=== PATIENT | male | born 1955 | race Caucasian/White ===

== ENCOUNTER 2017-12-09 11:42 | Emergency (ER) | payer OTHER ==
[2017-12-09 12:04] VITALS: BP 157/77
[2017-12-09] MEDS ORDERED: Sodium Chloride 0.9% 10 ML Syringe FLUSH PRN (12:16)
[2017-12-09] MEDS ORDERED: Lactated Ringers 1,000 ML IV ONE (12:16)
--- NOTE | 2017-12-09 12:18 | EDM.PDOC ---
ED HPI GENERAL MEDICAL PROBLEM - General Chief Complaint: Genitourinary Problem Stated Complaint: URINATING BLOOD Time Seen by Provider: 12/09/17 12:10 Source of Information: Reports: Patient, RN Notes Reviewed History Limitations: Reports: No Limitations - History of Present Illness INITIAL COMMENTS - FREE TEXT/NARRATIVE: 62-year-old gentleman presents to the emergency department today complaint of bright red blood in his urine he has urinated 3 times over the last 2 hours however the bright red blood has decreased each time. Does have a known history of colon cancer as well as prostate cancer currently on treatment denies any other symptoms - Related Data Allergies Allergy/AdvReac Type Severity Reaction Status Date / Time Penicillins Allergy Shortness Verified 12/09/17 11:54 of Breath Home Meds: Home Meds Ferrous Sulfate [Iron] 325 mg PO DAILY 06/10/13 [History] Gemfibrozil 600 mg PO BID 06/10/13 [History] Omeprazole [Prilosec] 40 mg PO DAILY 06/10/13 [History] glyBURIDE [Glyburide] 10 mg PO BIDM 06/10/13 [History] metFORMIN [Glucophage XR] 750 mg PO TID 02/10/14 [History] Aspirin [Children's Aspirin] 81 mg PO DAILY 06/16/16 [History] Losartan [Cozaar] 50 mg PO DAILY 06/16/16 [History] Liraglutide [Victoza 3-Renzo] 1.2 mg SQ DAILY 11/21/17 [History] Past Medical History HEENT History: Reports: Impaired Vision, Otitis Media Cardiovascular History: Reports: High Cholesterol, Hypertension Musculoskeletal History: Reports: Arthritis, Fracture Other Musculoskeletal History: history of left middle finger fracture secondary to football year ago Endocrine/Metabolic History: Reports: Diabetes, Type II Hematologic History: Reports: Blood Transfusion(s) Oncologic (Cancer) History: Reports: Bone, Colon, Liver, Metastatic, Prostate - Infectious Disease History Infectious Disease History: Reports: Measles - Past Surgical History GI Surgical History: Reports: Appendectomy, Colon, Colonoscopy, EGD, Hernia, Abdominal, Other (See Below) Musculoskeletal Surgical History: Reports: Arthroscopic Knee, Hip Replacement, Knee Replacement Oncologic Surgical History: Reports: None Social & Family History - Family History Family Medical History: Noncontributory Oncologic: Reports: Prostate - Tobacco Use Smoking Status *Q: Never Smoker Second Hand Smoke Exposure: No - Caffeine Use Caffeine Use: Reports: Coffee - Alcohol Use Days Per Week of Alcohol Use: 1 Number of Drinks Per Day: 6 Total Drinks Per Week: 6 - Recreational Drug Use Recreational Drug Use: No ED ROS GENERAL - Review of Systems Review Of Systems: See Below Constitutional: Reports: No Symptoms Respiratory: Reports: No Symptoms Cardiovascular: Reports: No Symptoms GI/Abdominal: Reports: No Symptoms : Reports: Hematuria ED EXAM, RENAL/ - Physical Exam Exam: See Below Exam Limited By: No Limitations General Appearance: Alert, WD/WN, No Apparent Distress Respiratory/Chest: No Respiratory Distress, Lungs Clear, Normal Breath Sounds, No Accessory Muscle Use Cardiovascular: Regular Rate, Rhythm, No Murmur GI/Abdominal: Soft, Non-Tender Course - Vital Signs Last Recorded V/S: Last Vital Signs Temp 97.1 F 12/09/17 12:03 Pulse 81 12/09/17 12:03 Resp 18 12/09/17 12:03 BP 157/77 H 12/09/17 12:03 Pulse Ox 98 12/09/17 12:03 - Orders/Labs/Meds Orders: Active Orders 24 hr Category Date Time Status Peripheral IV Care [RC] . DIRECTED Care 12/09/17 12:16 Active Urogram [CT] Stat Exams 12/09/17 12:16 Taken Iopamidol [Isovue-300 (61%)] Med 12/09/17 12:45 Active 130 ml IV . DIRECTED PRN Sodium Chloride 0.9% [Normal Saline] 100 ml Med 12/09/17 12:45 Active IV ASDIRECTED Sodium Chloride 0.9% [Saline Flush] Med 12/09/17 12:16 Active 10 ml FLUSH ASDIRECTED PRN Peripheral IV Insertion Adult [OM.PC] Routine Oth 12/09/17 12:16 Ordered Medication Orders Sodium Chloride (Normal Saline) 100 mls @ 3 mls/sec IV ASDIRECTED [facility] Last Admin: 12/09/17 13:20 Dose: 3 mls/sec Iopamidol (Isovue-300 (61%)) 130 ml IV . DIRECTED PRN PRN Reason: RADIOLOGY EXAM Stop: 12/10/17 12:46 Last Admin: 12/09/17 13:20 Dose: 130 ml Sodium Chloride (Saline Flush) 10 ml FLUSH ASDIRECTED PRN PRN Reason: Keep Vein Open Labs: Laboratory Tests 12/09/17 12/09/17 12/09/17 Range/Units 11:55 12:16 12:16 WBC 7.2 (4.5-11.0) K/uL RBC 4.35 (4.30-5.90) M/uL Hgb 12.5 (12.0-15.0) g/dL Hct 37.3 L (40.0-54.0) % MCV 86 (80-98) fL MCH 29 (27-31) pg MCHC 34 (32-36) % Plt Count 341 (150-400) K/uL Sodium 140 (140-148) mmol/L Potassium 4.1 (3.6-5.2) mmol/L Chloride 105 (100-108) mmol/L Carbon Dioxide 25 (21-32) mmol/L Anion Gap 10.0 (5.0-14.0) mmol/L BUN 17 D (7-18) mg/dL Creatinine 0.8 (0.8-1.3) mg/dL Est Cr Clr Drug Dosing 91.44 mL/min Estimated GFR (MDRD) > 60 (>60) Glucose 337 H (74-106) mg/dL Calcium 8.7 (8.5-10.1) mg/dL Urine Color Yellow Urine Appearance Cloudy Urine pH 6.0 (4.5-8.0) Ur Specific [place] 1.010 (1.008-1.030) Urine Protein Negative (NEGATIVE) mg/dL Urine Glucose (UA) 1000 H (NEGATIVE) mg/dL Urine Ketones Negative (NEGATIVE) mg/dL Urine Occult Blood Large (NEGATIVE) Urine Nitrite Negative (NEGAITVE) Urine Bilirubin Negative (NEGATIVE) Urine Urobilinogen Normal (NORMAL) mg/dL Ur Leukocyte Esterase Negative (NEGATIVE) Urine RBC 75-100 H (0-5) Urine WBC Not seen (0-5) Ur Epithelial Cells Not seen Amorphous Sediment Not seen Urine Bacteria Rare Urine Mucus Not seen Meds: Medications Generic Name Dose Route Start Last Admin Trade Name Freq PRN Reason Stop Dose Admin Sodium Chloride 100 mls @ 3 mls/sec 12/09/17 12:45 12/09/17 13:20 Normal Saline IV 3 mls/sec ASDIRECTED MARLA Administration Iopamidol 130 ml 12/09/17 12:45 12/09/17 13:20 Isovue-300 (61%) IV 12/10/17 12:46 130 ml . DIRECTED PRN Administration RADIOLOGY EXAM Sodium Chloride 10 ml 12/09/17 12:16 Saline Flush FLUSH ASDIRECTED PRN Keep Vein Open Discontinued Medications Generic Name Dose Route Start Last Admin Trade Name Carolann PRN Reason Stop Dose Admin Lactated Ringer's 1,000 mls @ 999 mls/hr 12/09/17 12:16 12/09/17 13:15 Ringers, Lactated IV 12/09/17 13:16 999 mls/hr BOLUS ONE Administration Departure - Departure Time of Disposition: 14:20 Disposition: Home, Self-Care 01 Condition: Fair Clinical Impression: Bladder mass - Discharge Information Referrals: Rick Domínguez PA [Primary Care Provider] - Forms: ED Department Discharge Additional Instructions: Please contact your primary care tomorrow morning for consultation with urology , call or return to the emergency department worsening of symptoms - My Orders Last 24 Hours: My Active Orders 12/09/17 12:16 Peripheral IV Care [RC] . DIRECTED Urogram [CT] Stat Sodium Chloride 0.9% [Saline Flush] 10 ml FLUSH ASDIRECTED PRN Peripheral IV Insertion Adult [OM.PC] Routine 12/09/17 12:45 Iopamidol [Isovue-300 (61%)] 130 ml IV . DIRECTED PRN Sodium Chloride 0.9% [Normal Saline] 100 ml IV ASDIRECTED - Assessment/Plan Last 24 Hours: My Active Orders 12/09/17 12:16 Peripheral IV Care [RC] . DIRECTED Urogram [CT] Stat Sodium Chloride 0.9% [Saline Flush] 10 ml FLUSH ASDIRECTED PRN Peripheral IV Insertion Adult [OM.PC] Routine 12/09/17 12:45 Iopamidol [Isovue-300 (61%)] 130 ml IV . DIRECTED PRN Sodium Chloride 0.9% [Normal Saline] 100 ml IV ASDIRECTED Plan: Assessment Acuity = acute Site and laterality = bladder mass Etiology = suspicious for malignancy Manifestations = hematuria Location of injury = Home Lab values = CBC, BMP unremarkable urinalysis reveals 75 200 rbc's consists with hematuria and greater than thousand glucose consistent glucose urea CT scan : IMPRESSION: 1. Central bladder base 4.6 x 2.4 centimeter filling defect suspicious for malignancy. Urology consultation would be recommended. 2. Left renal cyst. Plan I did review lab work and CT scan results with him he is going to follow-up with his primary care tomorrow for referral to urology This note was dictated using [email or web address] voice recognition software please call with any questions on syntax or regine.
[2017-12-09] MEDS ORDERED: Iopamidol 612 MG/ML 150 ML Bottle IV PRN (12:45)
[2017-12-09] MEDS ORDERED: Sodium Chloride 0.9% 100 ML IV SCH (12:45)
== END 2017-12-09 14:37 | disposition home or self-care (01) ==
LOC: JP.ED 11:42
DX: N32.9 Bladder disorder, unspecified (principal); E78.00 Pure hypercholesterolemia, unspecified; I10 Essential (primary) hypertension; E11.9 Type 2 diabetes mellitus without complications; Z88.0 Allergy status to penicillin; Z79.899 Other long term (current) drug therapy; Z79.82 Long term (current) use of aspirin; Z79.84 Long term (current) use of oral hypoglycemic drugs; Z90.49 Acquired absence of other specified parts of digestive tract
CPT/HCPCS: 36415; 74178; 80048; 81001; 85027; 96360; 99284; J7030; J7120

== ENCOUNTER 2018-01-30 08:16 | Day surgery (SDC) | payer OTHER ==
[2018-01-30] MEDS: Lactated Ringers 1,000 ML IV SCH (08:43)
[2018-01-30] MEDS ORDERED: Propofol 200 MG/20 ML SDV ONE (09:06)
[2018-01-30] MEDS ORDERED: fentaNYL 100 MCG/2 ML SDV ONE (09:06)
[2018-01-30] MEDS ORDERED: Midazolam 1 MG/ML 2 ML SDV ONE (09:06)
[2018-01-30 11:41] VITALS: BP 139/79
--- NOTE | 2018-01-30 12:41 | OR ---
DATE OF PROCEDURE: 01/30/2018 PREOPERATIVE DIAGNOSIS: History of colon cancer. POSTOPERATIVE DIAGNOSES: 1. Diverticulosis. 2. History of colon cancer. PROCEDURE: Colonoscopy to the ileotransverse colon anastomosis. SURGEON: Anand Canseco MD. ANESTHESIA: IV anesthesia with monitored anesthesia care. INDICATION: This 62-year-old white male is referred for a colonoscopy because of a history of colon cancer. He says he underwent a right hemicolectomy in 2013. He has not had a colonoscopy since then. I counseled him for the procedure including the risks and alternatives, and he gave his informed consent to proceed. DESCRIPTION OF PROCEDURE: The patient was placed in the left lateral decubitus position. IV anesthesia was administered by the Anesthesia Service. Time-out was held. A rectal exam was performed, which showed a hard mass in the prostate gland. He does have known metastatic prostate cancer for which he is being treated. A flexible video Olympus colonoscope was then introduced through his anus, up his rectum, and out his colon, all the way to the ileotransverse colon anastomosis. En route, we saw very few scattered diverticula. There was no bleeding or inflammation associated with them. Once the cecum was reached, the scope was slowly withdrawn, examining the mucosa throughout. No additional mucosal abnormalities were noted. The scope was retroflexed in the rectum with the distal rectum appearing unremarkable. The scope was straightened and removed. He tolerated the procedure well. Anand Canseco MD /[id number]
== END 2018-01-30 11:35 | disposition home or self-care (01) ==
LOC: JP.SDS 08:16
PROVIDERS: ATTEND Surgery
DX: Z12.11 Encounter for screening for malignant neoplasm of colon (principal); K57.30 Diverticulosis of large intestine without perforation or abscess without bleeding; I10 Essential (primary) hypertension; E11.9 Type 2 diabetes mellitus without complications; E78.00 Pure hypercholesterolemia, unspecified; Z90.49 Acquired absence of other specified parts of digestive tract; Z85.038 Personal history of other malignant neoplasm of large intestine; Z88.0 Allergy status to penicillin
CPT/HCPCS: J2250; J2704; J3010; J7120

== ENCOUNTER 2018-09-25 09:49 | Inpatient (IN) | payer OTHER ==
[2018-09-25] MEDS ORDERED: Sodium Chloride 0.9% 1,000 ML IV ONE (09:52)
[2018-09-25] MEDS ORDERED: Insulin Regular, Human 100 Units/ML 3 ML Vial SUBCUT ONE ×2 (09:53→12:09)
--- NOTE | 2018-09-25 10:48 | EDM.PDOC ---
ED HPI GENERAL MEDICAL PROBLEM - General Chief Complaint: General Stated Complaint: POSSIBLE DEHYDRATION, SENT OVER FROM ONCOLOGY Time Seen by Provider: 09/25/18 10:30 Source of Information: Reports: Patient, Old Records, Provider, RN History Limitations: Reports: Other (incomplete records) - History of Present Illness INITIAL COMMENTS - FREE TEXT/NARRATIVE: 62 yo male with known stage IV prostate CA with mets to the bladder is just about to start radiation therapy in [place]. He had some recent labs there, but does not know the values. Today he was seen in oncology locally and they noted some very abnormal labs so referred him to the ER. He complains of SOB, increased thirst, frequent urination, and weakness. He has had a minimal dry cough. No dysuria. He has been out of his metformin for about 2 weeks due to a problem with getting a refill. No fever. Onset: Gradual Duration: Week(s):, Getting Worse Location: Reports: Generalized Quality: Reports: Other (no reported pain) Severity: Moderate Improves with: Reports: None Worsens with: Reports: Other (time) Context: Reports: Other (See HPI) Associated Symptoms: Reports: Cough (minimal, dry), Malaise, Shortness of Breath , Weakness. Denies: Chest Pain, Fever/Chills, Nausea/Vomiting Treatments VISION REHABILITATION THERAPIST: Reports: Other (see below) (none) Abdomen Pain Score (Numeric/FACES): 2 - Related Data Allergies Allergy/AdvReac Type Severity Reaction Status Date / Time Penicillins Allergy Shortness Verified 09/25/18 10:05 of Breath Home Meds: Home Meds Ferrous Sulfate [Iron] 325 mg PO DAILY 06/10/13 [History] Gemfibrozil 600 mg PO BID 06/10/13 [History] Omeprazole [Prilosec] 40 mg PO DAILY 06/10/13 [History] glyBURIDE [Glyburide] 10 mg PO BIDM 06/10/13 [History] metFORMIN [Glucophage XR] 750 mg PO TID 02/10/14 [History] Aspirin [Children's Aspirin] 81 mg PO DAILY 06/16/16 [History] Losartan [Cozaar] 50 mg PO DAILY 06/16/16 [History] Liraglutide [Victoza 3-Renzo] 1.2 mg SQ DAILY 11/21/17 [History] atorvaSTATin [Lipitor] 10 mg PO BEDTIME 01/30/18 [History] glipiZIDE [Glucotrol] 10 mg PO BID 01/30/18 [History] Past Medical History HEENT History: Reports: Hard of Hearing, Impaired Vision, Otitis Media Cardiovascular History: Reports: High Cholesterol, Hypertension Gastrointestinal History: Reports: Colon Polyp Genitourinary History: Reports: Other (See Below) Other Genitourinary History: cancer urethra, bladder, prostate metastasis Musculoskeletal History: Reports: Arthritis, Fracture Other Musculoskeletal History: history of left middle finger fracture secondary to football year ago Neurological History: Reports: None Endocrine/Metabolic History: Reports: Diabetes, Type II Hematologic History: Reports: Blood Transfusion(s) Oncologic (Cancer) History: Reports: Bone, Colon, Liver, Lymphoma, Metastatic, Prostate, Other (See Below) Other Oncologic History: Urethra - Infectious Disease History Infectious Disease History: Reports: Measles - Past Surgical History HEENT Surgical History: Reports: Other (See Below) Other HEENT Surgeries/Procedures: Cyst inner ear GI Surgical History: Reports: Appendectomy, Colon, Colonoscopy, EGD, Hernia, Abdominal Male Surgical History: Reports: Prostatectomy, Other (See Below) Other Male Surgeries/Procedures: Bladder tumor, urethra biopsies Neurological Surgical History: Reports: Vertebroplasty Musculoskeletal Surgical History: Reports: Arthroscopic Knee, Hip Replacement, Knee Replacement, Other (See Below) Other Musculoskeletal Surgeries/Procedures:: Hip revision, verteoplasty Oncologic Surgical History: Reports: None Social & Family History - Family History Family Medical History: Noncontributory Oncologic: Reports: Prostate - Tobacco Use Smoking Status *Q: Never Smoker - Caffeine Use Caffeine Use: Reports: None - Recreational Drug Use Recreational Drug Use: No ED ROS GENERAL - Review of Systems Review Of Systems: See Below Constitutional: Reports: Malaise, Weakness. Denies: Fever HEENT: Reports: No Symptoms Respiratory: Reports: Shortness of Breath, Cough (minimal, dry). Denies: Wheezing, Pleuritic Chest Pain, Sputum, Hemoptysis Cardiovascular: Reports: No Symptoms Endocrine: Reports: No Symptoms GI/Abdominal: Reports: No Symptoms : Reports: Frequency. Denies: Dysuria, Flank Pain, Hematuria Musculoskeletal: Reports: No Symptoms Skin: Reports: No Symptoms Neurological: Reports: No Symptoms ED EXAM, GENERAL - Physical Exam Exam: See Below Exam Limited By: No Limitations General Appearance: Alert, WD/WN, No Apparent Distress Eye Exam: Bilateral Eye: Normal Inspection Ears: Normal External Exam, Normal Canal, Hearing Grossly Normal Ear Exam: Bilateral Ear: Auricle Normal, Canal Normal Nose: Normal Inspection, Normal Mucosa, No Blood Throat/Mouth: Normal Inspection, Normal Lips, Normal Oropharynx, Normal Voice, No Airway Compromise Head: Atraumatic, Normocephalic Neck: Normal Inspection Respiratory/Chest: No Respiratory Distress, Lungs Clear, Normal Breath Sounds, No Accessory Muscle Use Cardiovascular: Regular Rate, Rhythm, No Edema, Tachycardia GI/Abdominal: Normal Bowel Sounds, Soft, Non-Tender, No Distention Back Exam: Normal Inspection. No: CVA Tenderness (R), CVA Tenderness (L) Extremities: Normal Inspection, Normal Range of Motion, Non-Tender, No Pedal Edema Neurological: Alert, Oriented, CN II-XII Intact, Normal Cognition, No Motor/ Sensory Deficits Psychiatric: Normal Affect, Normal Mood Skin Exam: Warm, Dry, Intact, Normal Color, No Rash Lymphatic: No Adenopathy Course - Vital Signs Last Recorded V/S: Last Vital Signs Temp 34.7 C L 09/25/18 10:08 Pulse 96 09/25/18 12:30 Resp 20 09/25/18 10:08 BP 130/84 09/25/18 12:30 Pulse Ox 99 09/25/18 12:30 - Orders/Labs/Meds Orders: Active Orders 24 hr Category Date Time Status CULTURE BLOOD [BC] Stat Lab 09/25/18 10:08 Received Labs: Laboratory Tests 09/25/18 09/25/18 09/25/18 Range/Units 09:51 10:08 11:35 Potassium 5.8 H (3.6-5.2) mmol/L Lactic Acid 2.9 H (0.4-2.0) mmol/L Troponin I (0.000-0.056) ng/mL Urine Color Yellow Urine Appearance Slightly cloudy Urine pH 5.0 (4.5-8.0) Ur Specific [place] 1.020 (1.008-1.030) Urine Protein Negative (NEGATIVE) mg/dL Urine Glucose (UA) >=1000 H (NEGATIVE) mg/dL Urine Ketones 150 H (NEGATIVE) mg/dL Urine Occult Blood Negative (NEGATIVE) Urine Nitrite Negative (NEGAITVE) Urine Bilirubin Negative (NEGATIVE) Urine Urobilinogen Normal (NORMAL) mg/dL Ur Leukocyte Esterase Negative (NEGATIVE) Urine RBC 5-10 H (0-5) Urine WBC 0-5 (0-5) Ur Epithelial Cells Not seen Amorphous Sediment Few Urine Bacteria Few Urine Mucus Rare Urine Other See note 09/25/18 Range/Units 12:29 Potassium (3.6-5.2) mmol/L Lactic Acid (0.4-2.0) mmol/L Troponin I < 0.017 (0.000-0.056) ng/mL Urine Color Urine Appearance Urine pH (4.5-8.0) Ur Specific [place] (1.008-1.030) Urine Protein (NEGATIVE) mg/dL Urine Glucose (UA) (NEGATIVE) mg/dL Urine Ketones (NEGATIVE) mg/dL Urine Occult Blood (NEGATIVE) Urine Nitrite (NEGAITVE) Urine Bilirubin (NEGATIVE) Urine Urobilinogen (NORMAL) mg/dL Ur Leukocyte Esterase (NEGATIVE) Urine RBC (0-5) Urine WBC (0-5) Ur Epithelial Cells Amorphous Sediment Urine Bacteria Urine Mucus Urine Other Meds: Medications Discontinued Medications Generic Name Dose Route Start Last Admin Trade Name Freq PRN Reason Stop Dose Admin Sodium Chloride 1,000 mls @ 1,000 mls/hr 09/25/18 09:52 09/25/18 10:30 Normal Saline IV 09/25/18 10:51 1,000 mls/hr .BOLUS ONE Administration Insulin Human Regular 12 unit 09/25/18 09:53 09/25/18 10:37 Humulin R SUBCUT 09/25/18 09:54 12 units ONETIME ONE Administration Insulin Human Regular 15 unit 09/25/18 12:09 09/25/18 12:29 Humulin R SUBCUT 09/25/18 12:10 15 units ONETIME ONE Administration Departure - Departure Time of Disposition: 13:30 Disposition: Refer to Observation Condition: Fair Clinical Impression: Hyperkalemia, Prostate cancer metastatic to pelvis, Weakness Hyperglycemia due to type 2 diabetes mellitus Qualifiers: Diabetes mellitus longterm insulin use: without longterm use Qualified Code(s ): E11.65 - Type 2 diabetes mellitus with hyperglycemia - Discharge Information *PRESCRIPTION DRUG MONITORING PROGRAM REVIEWED*: No *COPY OF PRESCRIPTION DRUG MONITORING REPORT IN PATIENT SG: No Referrals: Rick Domínguez PA [Primary Care Provider] - Forms: ED Department Discharge - My Orders Last 24 Hours: My Active Orders 09/25/18 10:08 CULTURE BLOOD [BC] Stat - Assessment/Plan Last 24 Hours: My Active Orders 09/25/18 10:08 CULTURE BLOOD [BC] Stat
--- NOTE | 2018-09-25 15:29 | PCM.HP ---
H&P History of Present Illness - General Date of Service: 09/25/18 Admit Problem/Dx: Admission Diagnosis/Problem Admission Diagnosis/Problem Hyperglycemia Source of Information: Patient, Family, Provider, RN Notes Reviewed History Limitations: Reports: No Limitations - History of Present Illness Initial Comments - Free Text/Narative: Mr. Schulz is a 62-year-old gentleman who is admitted through the emergency department with history of progressive weakness, fatigue, nausea, and shortness of breath. He was recently diagnosed with metastatic prostate cancer and is close to beginning radiation therapy as well as chemotherapy. He has a known history of type 2 diabetes mellitus and ran out of his metformin approximately 9 days ago. Since then he has noted polydipsia as well as polyuria with progressive weakness and fatigue. He was into the oncology clinic today, labs were obtained showing evidence of acute on chronic renal insufficiency, hyperglycemia with a glucose of 600, and metabolic acidosis with elevation in anion gap and a decrease in carbon dioxide level to 11. He has received IV insulins as well as IV fluids in the emergency department and has felt somewhat improved. White blood cell count in the clinic was found to be elevated, he has no specific symptoms of localized infection and denies recent fever or chills. Follow-up labs obtained prior to admission show persistent but improving metabolic acidosis, elevation in serum ketones as well as lactic acid level. Abdomen Pain Score (Numeric/FACES): 2 - Related Data Allergies/Adverse Reactions: Allergies Allergy/AdvReac Type Severity Reaction Status Date / Time Penicillins Allergy Shortness Verified 09/25/18 10:05 of Breath Home Medications: Home Meds Ferrous Sulfate [Iron] 325 mg PO DAILY 06/10/13 [History] Gemfibrozil 600 mg PO BID 06/10/13 [History] Omeprazole [Prilosec] 40 mg PO DAILY 06/10/13 [History] glyBURIDE [Glyburide] 10 mg PO BIDM 06/10/13 [History] metFORMIN [Glucophage XR] 750 mg PO TID 02/10/14 [History] Aspirin [Children's Aspirin] 81 mg PO DAILY 06/16/16 [History] Losartan [Cozaar] 50 mg PO DAILY 06/16/16 [History] Liraglutide [Victoza 3-Renzo] 1.2 mg SQ DAILY 11/21/17 [History] atorvaSTATin [Lipitor] 10 mg PO BEDTIME 01/30/18 [History] glipiZIDE [Glucotrol] 10 mg PO BID 01/30/18 [History] Past Medical History HEENT History: Reports: Hard of Hearing, Impaired Vision, Otitis Media Cardiovascular History: Reports: High Cholesterol, Hypertension Gastrointestinal History: Reports: Colon Polyp Genitourinary History: Reports: Other (See Below) Other Genitourinary History: cancer urethra, bladder, prostate metastasis Musculoskeletal History: Reports: Arthritis, Fracture Other Musculoskeletal History: history of left middle finger fracture secondary to football year ago Neurological History: Reports: None Endocrine/Metabolic History: Reports: Diabetes, Type II Hematologic History: Reports: Blood Transfusion(s) Oncologic (Cancer) History: Reports: Bone, Colon, Liver, Lymphoma, Metastatic, Prostate, Other (See Below) Other Oncologic History: Urethra - Infectious Disease History Infectious Disease History: Reports: Measles - Past Surgical History HEENT Surgical History: Reports: Other (See Below) Other HEENT Surgeries/Procedures: Cyst inner ear GI Surgical History: Reports: Appendectomy, Colon, Colonoscopy, EGD, Hernia, Abdominal Male Surgical History: Reports: Prostatectomy, Other (See Below) Other Male Surgeries/Procedures: Bladder tumor, urethra biopsies Neurological Surgical History: Reports: Vertebroplasty Musculoskeletal Surgical History: Reports: Arthroscopic Knee, Hip Replacement, Knee Replacement, Other (See Below) Other Musculoskeletal Surgeries/Procedures:: Hip revision, verteoplasty Oncologic Surgical History: Reports: None Social & Family History - Family History Family Medical History: Noncontributory Oncologic: Reports: Prostate - Tobacco Use Smoking Status *Q: Never Smoker - Caffeine Use Caffeine Use: Reports: None - Recreational Drug Use Recreational Drug Use: No H&P Review of Systems - Review of Systems: Review Of Systems: See Below General: Reports: Weakness, Decreased Appetite. Denies: Fever, Chills HEENT: Reports: No Symptoms Pulmonary: Reports: Shortness of Breath. Denies: Wheezing, Pleuritic Chest Pain , Cough, Sputum, Hemoptysis Cardiovascular: Reports: Dyspnea on Exertion, Lightheadedness. Denies: Chest Pain, Palpitations, Orthopnea, PND, Edema Gastrointestinal: Reports: Decreased Appetite, Nausea. Denies: Abdominal Pain, Constipation, Diarrhea, Distension, Vomiting Genitourinary: Reports: No Symptoms Musculoskeletal: Reports: No Symptoms Skin: Reports: No Symptoms Psychiatric: Reports: No Symptoms Neurological: Reports: No Symptoms Hematologic/Lymphatic: Reports: No Symptoms Immunologic: Reports: No Symptoms Exam - Exam Exam: See Below - Vital Signs Vital Signs: Last Vital Signs Temp 95.8 F 09/25/18 13:36 Pulse 92 09/25/18 13:36 Resp 18 09/25/18 13:36 BP 140/77 09/25/18 13:36 Pulse Ox 99 09/25/18 13:36 Weight: 166 lb - Exam Quality Assessment: DVT Prophylaxis General: Alert, Oriented, Cooperative, Mild Distress HEENT: Conjunctiva Clear, Hearing Intact, Normal Nasal Septum, Posterior Pharynx Clear, Pupils Equal. No: Mucosa Moist & [place] Neck: Supple, Trachea Midline, +2 Carotid Pulse wo Bruit Lungs: Clear to Auscultation, Normal Respiratory Effort Cardiovascular: Regular Rate, Regular Rhythm, Normal S1, Normal S2. No: Systolic Murmur, Diastolic Murmur GI/Abdominal Exam: Soft, Non-Tender, No Organomegaly, No Distention Back Exam: Normal Inspection, Full Range of Motion Extremities: Non-Tender, No Pedal Edema Skin: Warm, Dry, Intact Neurological: Cranial Nerves Intact, Strength Equal Bilateral, Normal Speech, Normal Tone, Sensation Intact. No: Focal Deficit Neuro Extensive - Mental Status: Alert, Oriented x3, Normal Mood/Affect, Normal Cognition, Memory Intact - Patient Data Lab Results Last 24 hrs: Laboratory Results - last 24 hr 09/25/18 09/25/18 09/25/18 Range/Units 09:51 10:08 11:35 Potassium 5.8 H (3.6-5.2) mmol/L Lactic Acid 2.9 H (0.4-2.0) mmol/L Troponin I (0.000-0.056) ng/mL Urine Color Yellow Urine Appearance Slightly cloudy Urine pH 5.0 (4.5-8.0) Ur Specific [place] 1.020 (1.008-1.030) Urine Protein Negative (NEGATIVE) mg/dL Urine Glucose (UA) >=1000 H (NEGATIVE) mg/dL Urine Ketones 150 H (NEGATIVE) mg/dL Urine Occult Blood Negative (NEGATIVE) Urine Nitrite Negative (NEGAITVE) Urine Bilirubin Negative (NEGATIVE) Urine Urobilinogen Normal (NORMAL) mg/dL Ur Leukocyte Esterase Negative (NEGATIVE) Urine RBC 5-10 H (0-5) Urine WBC 0-5 (0-5) Ur Epithelial Cells Not seen Amorphous Sediment Few Urine Bacteria Few Urine Mucus Rare Urine Other See note 09/25/18 Range/Units 12:29 Potassium (3.6-5.2) mmol/L Lactic Acid (0.4-2.0) mmol/L Troponin I < 0.017 (0.000-0.056) ng/mL Urine Color Urine Appearance Urine pH (4.5-8.0) Ur Specific [place] (1.008-1.030) Urine Protein (NEGATIVE) mg/dL Urine Glucose (UA) (NEGATIVE) mg/dL Urine Ketones (NEGATIVE) mg/dL Urine Occult Blood (NEGATIVE) Urine Nitrite (NEGAITVE) Urine Bilirubin (NEGATIVE) Urine Urobilinogen (NORMAL) mg/dL Ur Leukocyte Esterase (NEGATIVE) Urine RBC (0-5) Urine WBC (0-5) Ur Epithelial Cells Amorphous Sediment Urine Bacteria Urine Mucus Urine Other Result Diagrams: 09/25/18 16:05 *Q Meaningful Use (ADM) - VTE Risk Assess *Q Each Risk Factor Represents 1 Point: None Total Score 1 Point Risk Factors: 0 Each Risk Factor Represents 2 Points: Age 60 - 74 Years, Malignancy (present or previous) Total Score 2 Point Risk Factors: 4 Each Risk Factor Represents 3 Points: None Total Score 3 Point Risk Factors: 0 Each Risk Factor Represents 5 Points: None Total Score 5 Point Risk Factors: 0 Venous Thromboembolism Risk Factor Score *Q: 4 Problem List Initiated/Reviewed/Updated: Yes Orders Last 24hrs: Active Orders 24 hr Category Date Time Status Patient Status Manage Transfer [TRANSFER] Routine ADT 09/25/18 15:06 Ordered CULTURE BLOOD [BC] Stat Lab 09/25/18 10:08 Received Resuscitation Status Routine Resus Stat 09/25/18 15:09 Ordered Assessment/Plan Comment:: ASSESSMENT AND PLAN METABOLIC ACIDOSIS-with moderate elevation in serum ketones and mild elevation in lactic acid level. Likely multifactorial with ketoacidosis secondary to uncontrolled diabetes2, dehydration, and decrease in oral intake. Elevation in lactic acid level likely secondary to dehydration. He has improved with doses of insulin and in the emergency department as well as IV fluids. -Moderate dose subcutaneous insulins -Resume therapy with metformin -Vigorous IV fluid replacement -Closely monitor electrolytes HYPERKALEMIA-secondary to acidosis, potassium level improved following hydration , will need to monitor closely for decrease in potassium level -Serial potassium levels -KCl 40 mEq by mouth now TYPE 2 DIABETES MELLITUS WITH HYPERGLYCEMIA-history of having stopped metformin approximately 9 days ago -4 times a day glucometers -Moderate dose sliding scale Humalog -Resume therapy with metformin -Continue other outpatient medications ACUTE ON CHRONIC RENAL INSUFFICIENCY-at baseline has chronic kidney disease stage III, exacerbation likely secondary to dehydration -Closely monitor renal function and urine output METASTATIC PROSTATE CARCINOMA MAINTENANCE ISSUES -DVT prophylaxis; Lovenox 40 mg subcutaneous daily -GI prophylaxis; not indicated -Barros catheter; not indicated -Nutrition; consistent carb diet -Nicotine dependence; not required CODE STATUS-FULL CODE ADMISSION STATUS-this patient will be admitted to observation status, expect no more than a one night hospital stay for evaluation and management of problems as outlined above. DISPOSITION-anticipate discharge to home after the hospital stay. PRIMARY CARE PROVIDER-Rick Domínguez
[2018-09-25] MEDS ORDERED: Sodium Chloride 0.9% 10 ML Syringe FLUSH PRN (16:00)
[2018-09-25] MEDS ORDERED: Ondansetron 4 MG/2 ML SDV IV PRN (16:00)
[2018-09-25] MEDS ORDERED: 50% Dextrose in Water 50 ML Syringe IV PRN (16:00)
[2018-09-25] MEDS ORDERED: Acetaminophen 325 MG Tab PO PRN (16:00)
[2018-09-25] MEDS ORDERED: Glucose Gel 15 GM in 37.5 GM Tube PO PRN (16:00)
[2018-09-25] MEDS ORDERED: Polyethylene Glycol 3350 Powder 17 GM Packet PO PRN (16:00)
[2018-09-25] MEDS ORDERED: Sodium Chloride 0.9% 500 ML IV SCH (16:00)
[2018-09-25] MEDS ORDERED: Sodium Polystyrene Sulfonate 15 GM/60 ML Susp 60 ML Bot PO ONE (16:00)
[2018-09-25] MEDS ORDERED: Insulin Lispro 100 Unit/ML 3 ML KwikPen SUBCUT SCH (17:00)
[2018-09-25] MEDS ORDERED: Sodium Chloride 0.9% 1,000 ML IV SCH ×2 (17:00→21:15)
[2018-09-25] MEDS: metFORMIN 500 MG Tab.ER PO SCH (17:33)
[2018-09-25] MEDS: glipiZIDE 5 MG Tab PO SCH (17:34)
[2018-09-25] MEDS: Insulin Lispro 100 Unit/ML 3 ML KwikPen SUBCUT SCH ×2 (17:39→21:36)
[2018-09-25] MEDS ORDERED: Potassium Chloride 20 MEQ Tab.ER PO ONE (19:04)
[2018-09-25] MEDS: Sodium Chloride 0.9% 1,000 ML IV SCH (21:15)
[2018-09-25] MEDS: atorvaSTATin 10 MG Tab PO SCH (21:17)
[2018-09-25] MEDS: Gemfibrozil 600 MG Tab PO SCH (21:18)
[2018-09-26] MEDS: Sodium Chloride 0.9% 1,000 ML IV SCH ×3 (04:25→23:54)
[2018-09-26] MEDS: Enoxaparin 40 MG/0.4 ML Syringe SUBCUT SCH (08:31)
[2018-09-26] MEDS: Losartan 50 MG Tab PO SCH (08:32)
[2018-09-26] MEDS: metFORMIN 500 MG Tab.ER PO SCH ×3 (08:32→17:49)
[2018-09-26] MEDS: Gemfibrozil 600 MG Tab PO SCH ×2 (08:32→21:27)
[2018-09-26] MEDS: glipiZIDE 5 MG Tab PO SCH ×2 (08:32→17:49)
[2018-09-26] MEDS: Aspirin 81 MG Tab.Chew PO SCH (08:32)
[2018-09-26] MEDS: Insulin Lispro 100 Unit/ML 3 ML KwikPen SUBCUT SCH ×4 (08:33→21:28)
[2018-09-26] MEDS: Liraglutide (rDNA Origin) 0.6 MG/0.1 ML 3 ML Pen SUBCUT SCH (08:34)
[2018-09-26] MEDS: Pantoprazole 40 MG Tab.CR PO SCH (08:35)
[2018-09-26] MEDS: Magnesium Sulfate/Water 2 GM in Premix Bag 1 BAG IV SCH ×2 (10:12→15:35)
[2018-09-26] MEDS ORDERED: Sodium Chloride 0.9% 10 ML Syringe FLUSH ONE (10:25)
[2018-09-26] MEDS ORDERED: Iopamidol 755 Mg/ML 100 ML Bottle IV SCH (10:30)
--- NOTE | 2018-09-26 11:17 | CT ---
CTA chest. Technique: Autodosage and iterative techniques employed. Findings: No PE. No enlarged mediastinal or hilar adenopathy. No dissection. No pericardial effusion. No airspace disease. Sclerotic lesions within the upper thoracic spine indicate metastatic disease. Linear, nodular density is stable left lung base #98. Impression: 1. No PE. 2. Evidence for metastatic disease as above. 3. Stable linear, nodular density left lung base. This may indicate a venous structure such as a AVM or potentially pulmonary nodule.
[2018-09-26] MEDS ORDERED: Sodium Chloride 0.9% 1,000 ML IV SCH (12:00)
[2018-09-26] MEDS: Insulin Glargine,Human Rec. Analog 100 Units/ML 3 ML Pen SUBCUT SCH ×2 (13:38→21:29)
--- NOTE | 2018-09-26 14:18 | PCM.PN ---
- General Info Date of Service: 09/26/18 Subjective Update: Mr. Schulz has had improvement in his glucose levels as well as metabolic acidosis since admission. He received large volume of fluid initially and labs looked fairly good last evening, with decreased fluid rate since then he has had some recurrence of his elevated iron gap metabolic acidosis. Glucose levels not as well controlled and that is the had been previously. He reports ongoing symptoms of shortness of breath with fairly minimal exertion. Functional Status: Reports: Pain Controlled, Urinating. Denies: Tolerating Diet - Review of Systems General: Reports: Weakness. Denies: Fever, Chills Pulmonary: Reports: Shortness of Breath. Denies: Pleuritic Chest Pain, Cough, Sputum, Hemoptysis, Wheezing Cardiovascular: Reports: Dyspnea on Exertion. Denies: Chest Pain, Palpitations , Orthopnea, PND, Edema, Lightheadedness Gastrointestinal: Reports: Nausea, Vomiting. Denies: Abdominal Pain, Constipation, Diarrhea, Difficulty Swallowing Genitourinary: Reports: No Symptoms - Patient Data Vitals - Most Recent: Last Vital Signs Temp 97.0 F 09/26/18 11:04 Pulse 102 H 09/26/18 11:04 Resp 18 09/26/18 11:04 BP 136/71 09/26/18 11:04 Pulse Ox 99 09/26/18 11:04 Weight - Most Recent: 170 lb I&O - Last 24 Hours: Intake & Output 09/25/18 09/26/18 09/26/18 22:59 06:59 14:59 Intake Total 1480 2534 2531 Output Total 200 775 600 Balance 1280 1759 1931 Lab Results Last 24 Hours: Laboratory Results - last 24 hr 09/25/18 09/25/18 09/25/18 Range/Units 16:05 16:05 16:05 WBC (4.5-11.0) K/uL RBC (4.30-5.90) M/uL Hgb (12.0-15.0) g/dL Hct (40.0-54.0) % MCV (80-98) fL MCH (27-31) pg MCHC (32-36) % Plt Count (150-400) K/uL Neut % (Auto) (36-66) % Lymph % (Auto) (24-44) % Pine % (Auto) (2-6) % Eos % (Auto) (2-4) % Baso % (Auto) (0-1) % Puncture Site Rt.radial ABG pH 7.412 (7.350-7.450) ABG pCO2 23.9 L (35.0-42.0) mmHg ABG pO2 91.9 (75.0-100.0) mmHg ABG HCO3 15.0 L (22.0-26.0) mmol/L ABG Total CO2 13.6 L (23.0-27.0) mmol/L ABG O2 Saturation 96.5 (95.0-98.0) % ABG O2 Content 15.5 (15.0-23.0) %vol ABG Base Excess -7.9 mm/L ABG Hemoglobin 11.5 L (13.5-18.0) g/dL ABG Oxyhemoglobin 95.1 % ABG Carboxyhemoglobin 0.3 (0.0-1.6) % ABG Methemoglobin 1.1 % Primitivo Test Passed O2 Delivery Device Nasal cannula Sodium 123 L (140-148) mmol/L Potassium 4.2 (3.6-5.2) mmol/L Chloride 87 L (100-108) mmol/L Carbon Dioxide 15 L (21-32) mmol/L Anion Gap 25.2 H (5.0-14.0) mmol/L BUN 36 H D (7-18) mg/dL Creatinine 1.1 (0.8-1.3) mg/dL Est Cr Clr Drug Dosing 66.50 mL/min Estimated GFR (MDRD) > 60 (>60) Glucose 399 H (74-106) mg/dL Lactic Acid (0.4-2.0) mmol/L Calcium 9.4 (8.5-10.1) mg/dL Magnesium (1.8-2.4) mg/dL Ketones Moderate H (NEGATIVE) 09/25/18 09/25/18 09/25/18 Range/Units 19:00 21:00 21:00 WBC (4.5-11.0) K/uL RBC (4.30-5.90) M/uL Hgb (12.0-15.0) g/dL Hct (40.0-54.0) % MCV (80-98) fL MCH (27-31) pg MCHC (32-36) % Plt Count (150-400) K/uL Neut % (Auto) (36-66) % Lymph % (Auto) (24-44) % Pine % (Auto) (2-6) % Eos % (Auto) (2-4) % Baso % (Auto) (0-1) % Puncture Site ABG pH (7.350-7.450) ABG pCO2 (35.0-42.0) mmHg ABG pO2 (75.0-100.0) mmHg ABG HCO3 (22.0-26.0) mmol/L ABG Total CO2 (23.0-27.0) mmol/L ABG O2 Saturation (95.0-98.0) % ABG O2 Content (15.0-23.0) %vol ABG Base Excess mm/L ABG Hemoglobin (13.5-18.0) g/dL ABG Oxyhemoglobin % ABG Carboxyhemoglobin (0.0-1.6) % ABG Methemoglobin % Primitivo Test O2 Delivery Device Sodium 127 L (140-148) mmol/L Potassium 4.0 4.1 (3.6-5.2) mmol/L Chloride 93 L (100-108) mmol/L Carbon Dioxide 23 (21-32) mmol/L Anion Gap 15.1 H (5.0-14.0) mmol/L BUN 29 H (7-18) mg/dL Creatinine 1.0 (0.8-1.3) mg/dL Est Cr Clr Drug Dosing 73.15 mL/min Estimated GFR (MDRD) > 60 (>60) Glucose 284 H (74-106) mg/dL Lactic Acid 1.2 (0.4-2.0) mmol/L Calcium 8.1 L (8.5-10.1) mg/dL Magnesium (1.8-2.4) mg/dL Ketones (NEGATIVE) 09/26/18 09/26/18 09/26/18 Range/Units 05:11 05:11 11:10 WBC 13.0 H (4.5-11.0) K/uL RBC 3.70 L (4.30-5.90) M/uL Hgb 10.7 L (12.0-15.0) g/dL Hct 31.2 L (40.0-54.0) % MCV 84 (80-98) fL MCH 29 (27-31) pg MCHC 34 (32-36) % Plt Count 499 H (150-400) K/uL Neut % (Auto) 79 H (36-66) % Lymph % (Auto) 7 L (24-44) % Pine % (Auto) 13 H (2-6) % Eos % (Auto) 0 L (2-4) % Baso % (Auto) 0 (0-1) % Puncture Site ABG pH (7.350-7.450) ABG pCO2 (35.0-42.0) mmHg ABG pO2 (75.0-100.0) mmHg ABG HCO3 (22.0-26.0) mmol/L ABG Total CO2 (23.0-27.0) mmol/L ABG O2 Saturation (95.0-98.0) % ABG O2 Content (15.0-23.0) %vol ABG Base Excess mm/L ABG Hemoglobin (13.5-18.0) g/dL ABG Oxyhemoglobin % ABG Carboxyhemoglobin (0.0-1.6) % ABG Methemoglobin % Primitivo Test O2 Delivery Device Sodium 129 L 124 L (140-148) mmol/L Potassium 4.4 4.0 (3.6-5.2) mmol/L Chloride 95 L 92 L (100-108) mmol/L Carbon Dioxide 20 L 12 L (21-32) mmol/L Anion Gap 18.4 H 24.0 H (5.0-14.0) mmol/L BUN 22 H 21 H (7-18) mg/dL Creatinine 0.7 L 0.7 L (0.8-1.3) mg/dL Est Cr Clr Drug Dosing 104.50 104.89 mL/min Estimated GFR (MDRD) > 60 > 60 (>60) Glucose 222 H 290 H (74-106) mg/dL Lactic Acid (0.4-2.0) mmol/L Calcium 8.5 8.0 L (8.5-10.1) mg/dL Magnesium 1.6 L (1.8-2.4) mg/dL Ketones (NEGATIVE) Harjit Results Last 24 Hours: Microbiology 09/25/18 10:08 Aerobic Blood Culture - Preliminary Blood - Arm, Right NO GROWTH AFTER 1 DAY Anaerobic Blood Culture - Preliminary NO GROWTH AFTER 1 DAY Med Orders - Current: Current Medications Acetaminophen (Tylenol) 650 mg PO Q4H PRN PRN Reason: Pain (Mild 1-3)/fever Aspirin (Aspirin) 81 mg PO DAILY [facility] Last Admin: 09/26/18 08:32 Dose: 81 mg Atorvastatin Calcium (Lipitor) 10 mg PO BEDTIME [facility] Last Admin: 09/25/18 21:17 Dose: 10 mg Dextrose (Glutose 15) 15 gm PO ONETIME PRN PRN Reason: Hypoglycemia Dextrose/Water (Dextrose 50% In Water) 50 ml IV ONETIME PRN PRN Reason: Hypoglycemia Enoxaparin Sodium (Lovenox) 40 mg SUBCUT DAILY [facility] Last Admin: 09/26/18 08:31 Dose: 40 mg Gemfibrozil (Lopid) 600 mg PO BID [facility] Last Admin: 09/26/18 08:32 Dose: 600 mg Glipizide (Glucotrol) 10 mg PO BIDMEALS [facility] Last Admin: 09/26/18 08:32 Dose: 10 mg Sodium Chloride (Normal Saline) 1,000 mls @ 125 mls/hr IV ASDIRECTED [facility] Last Admin: 09/26/18 04:25 Dose: 125 mls/hr Magnesium Sulfate 2 gm/ Premix 50 mls @ 25 mls/hr IV Q6H [facility] Stop: 09/26/18 17:59 Last Admin: 09/26/18 10:12 Dose: 25 mls/hr Sodium Chloride (Normal Saline) 1,000 mls @ 500 mls/hr IV ASDIRECTED [facility] Stop: 09/26/18 16:01 Last Admin: 09/26/18 13:21 Dose: 500 mls/hr Insulin Glargine (Lantus Solostar) 20 units SUBCUT BID [facility] Last Admin: 09/26/18 13:38 Dose: 20 units Insulin Human Lispro (Humalog) 0 unit SUBCUT QIDACANDBED [facility]; Protocol Liraglutide (Victoza) 1.2 mg SUBCUT DAILY [facility] Last Admin: 09/26/18 08:34 Dose: 1.2 mg Losartan Potassium (Cozaar) 50 mg PO DAILY [facility] Last Admin: 09/26/18 08:32 Dose: 50 mg Metformin HCl (Glucophage Xr) 750 mg PO TIDMEALS [facility] Last Admin: 09/26/18 14:06 Dose: 750 mg Ondansetron HCl (Zofran) 4 mg IV Q4H PRN PRN Reason: Nausea/Vomiting Pantoprazole Sodium (Protonix) 40 mg PO ACBREAKFAST [facility] Last Admin: 09/26/18 08:35 Dose: 40 mg Polyethylene Glycol (Miralax) 17 gm PO DAILY PRN PRN Reason: Constipation Sodium Chloride (Saline Flush) 10 ml FLUSH ASDIRECTED PRN PRN Reason: Keep Vein Open Discontinued Medications Sodium Chloride (Normal Saline) 1,000 mls @ 1,000 mls/hr IV .BOLUS ONE Stop: 09/25/18 10:51 Last Admin: 09/25/18 10:30 Dose: 1,000 mls/hr Sodium Chloride (Normal Saline) 500 mls @ 250 mls/hr IV .BOLUS [facility] Stop: 09/25/18 22:01 Sodium Chloride (Normal Saline) 1,000 mls @ 125 mls/hr IV ASDIRECTED [facility] Sodium Chloride (Normal Saline) 1,000 mls @ 500 mls/hr IV ASDIRECTED [facility] Stop: 09/25/18 21:01 Last Infusion: 09/25/18 18:59 Dose: Infused Sodium Chloride (Normal Saline) 89 mls @ 4 mls/sec IV ASDIRECTED [facility] Stop: 09/26/18 11:30 Last Admin: 09/26/18 10:49 Dose: 4 mls/sec Insulin Human Lispro (Humalog) 0 unit SUBCUT QIDACANDBED [facility]; Protocol Insulin Human Lispro (Humalog) 0 unit SUBCUT QIDACANDBED [facility]; Protocol Last Admin: 09/26/18 12:28 Dose: Not Given Insulin Human Regular (Humulin R) 12 unit SUBCUT ONETIME ONE Stop: 09/25/18 09:54 Last Admin: 09/25/18 10:37 Dose: 12 units Insulin Human Regular (Humulin R) 15 unit SUBCUT ONETIME ONE Stop: 09/25/18 12:10 Last Admin: 09/25/18 12:29 Dose: 15 units Iopamidol (Isovue-370 (76%)) 100 ml IV . DIRECTED [facility] Stop: 09/26/18 11:30 Last Admin: 09/26/18 10:48 Dose: 100 ml Potassium Chloride (Klor-Con M20) 40 meq PO ONETIME ONE Stop: 09/25/18 19:05 Last Admin: 09/25/18 19:57 Dose: 40 meq Sodium Chloride (Saline Flush) 10 ml FLUSH ONETIME ONE Stop: 09/26/18 10:26 Last Admin: 09/26/18 10:49 Dose: 10 ml Sodium Polystyrene Sulfonate (Kayexalate) 15 gm PO ONETIME ONE Stop: 09/25/18 16:01 Last Admin: 09/25/18 22:28 Dose: Not Given - Exam Quality Assessment: DVT Prophylaxis General: Alert, Oriented, Cooperative, Mild Distress Lungs: Clear to Auscultation, Normal Respiratory Effort Cardiovascular: Regular Rate, Regular Rhythm, No Murmurs GI/Abdominal Exam: Soft, Non-Tender, No Organomegaly, No Distention Extremities: Non-Tender, No Pedal Edema Skin: Warm, Dry, Intact - Problem List Review Problem List Initiated/Reviewed/Updated: Yes - My Orders Last 24 Hours: My Active Orders 09/25/18 15:09 Resuscitation Status Routine 09/25/18 16:00 Ambulate [RC] QID Blood Glucose Check, Bedside [RC] QIDACANDBED Communication Order [RC] STAT Diabetes Education [RC] Click to Edit Height and Weight [RC] DAILY Intake and Output [RC] .PRN Notify Provider Vital Signs [RC] ASDIRECTED Notify Provider [RC] .PRN Oxygen Therapy [RC] .PRN Peripheral IV Care [RC] . DIRECTED Up With Assistance [RC] ASDIRECTED Up to Chair [RC] QID VTE/DVT Education [RC] Per Unit Routine Vital Signs [RC] Q4H Acetaminophen [Tylenol] 650 mg PO Q4H PRN Dextrose 50% in Water 50 ml IV ONETIME PRN Dextrose [Glutose 15] 15 gm PO ONETIME PRN Ondansetron [Zofran] 4 mg IV Q4H PRN Polyethylene Glycol 3350 [MiraLAX] 17 gm PO DAILY PRN Sodium Chloride 0.9% [Saline Flush] 10 ml FLUSH ASDIRECTED PRN Peripheral IV Insertion Adult [OM.PC] Routine 09/25/18 17:00 glipiZIDE [Glucotrol] 10 mg PO BIDMEALS metFORMIN [Glucophage XR] 750 mg PO TIDMEALS 09/25/18 21:00 Gemfibrozil [Lopid] 600 mg PO BID Sodium Chloride 0.9% [Normal Saline] 1,000 ml IV ASDIRECTED atorvaSTATin [Lipitor] 10 mg PO BEDTIME 09/26/18 07:30 Pantoprazole [ProTONIX] 40 mg PO ACBREAKFAST 09/26/18 09:00 Aspirin 81 mg PO DAILY Enoxaparin [Lovenox] 40 mg SUBCUT DAILY Liraglutide [Victoza] 1.2 mg SUBCUT DAILY Losartan [Cozaar] 50 mg PO DAILY 09/26/18 10:00 Magnesium Sulfate/Water [Magnesium Sulfate 2 GM in Water 50 ML] 2 gm Premix Bag 1 bag IV Q6H 09/26/18 10:19 Echo Comp wo Cont [US] Stat 09/26/18 12:00 Insulin Glarg,Human.Rec.Analog [LantUS Solostar] 20 units SUBCUT BID Sodium Chloride 0.9% [Normal Saline] 1,000 ml IV ASDIRECTED 09/26/18 14:09 Patient Status [ADT] Routine 09/26/18 16:30 GLUCOSE POC LAB TO COLLECT [POC] QIDACANDBED 09/26/18 17:00 BASIC METABOLIC PANEL,BMP [CHEM] Stat Insulin Lispro [HumaLOG] See Protocol SUBCUT QIDACANDBED 09/26/18 21:00 GLUCOSE POC LAB TO COLLECT [POC] QIDACANDBED 09/26/18 23:00 BASIC METABOLIC PANEL,BMP [CHEM] Stat 09/27/18 05:00 BASIC METABOLIC PANEL,BMP [CHEM] Timed CBC WITH AUTO DIFF [HEME] Timed MAGNESIUM [CHEM] Timed 09/27/18 07:30 GLUCOSE POC LAB TO COLLECT [POC] QIDACANDBED 09/27/18 08:00 Myocardial Perf Spect Multi [NM] Routine 09/27/18 11:30 GLUCOSE POC LAB TO COLLECT [POC] QIDACANDBED 09/27/18 16:30 GLUCOSE POC LAB TO COLLECT [POC] QIDACANDBED 09/27/18 21:00 GLUCOSE POC LAB TO COLLECT [POC] QIDACANDBED 09/27/18 Breakfast NPO After Midnight [Nothing per Oral After Midnight Diet] [DIET] 09/28/18 07:30 GLUCOSE POC LAB TO COLLECT [POC] QIDACANDBED 09/28/18 11:30 GLUCOSE POC LAB TO COLLECT [POC] QIDACANDBED 09/28/18 16:30 GLUCOSE POC LAB TO COLLECT [POC] QIDACANDBED 09/28/18 21:00 GLUCOSE POC LAB TO COLLECT [POC] QIDACANDBED 09/29/18 07:30 GLUCOSE POC LAB TO COLLECT [POC] QIDACANDBED 09/29/18 11:30 GLUCOSE POC LAB TO COLLECT [POC] QIDACANDBED 09/29/18 16:30 GLUCOSE POC LAB TO COLLECT [POC] QIDACANDBED 09/29/18 21:00 GLUCOSE POC LAB TO COLLECT [POC] QIDACANDBED 09/30/18 07:30 GLUCOSE POC LAB TO COLLECT [POC] QIDACANDBED 09/30/18 11:30 GLUCOSE POC LAB TO COLLECT [POC] QIDACANDBED - Plan Plan:: ASSESSMENT AND PLAN METABOLIC ACIDOSIS-improved with hydration last night, for glasses bleed worse since then with lower rates of fluid infusion -Moderate dose subcutaneous insulin -Initiate long-acting insulin therapy with Lantus 20 units subcutaneous twice daily -Resume therapy with metformin -Vigorous IV fluid replacement -Closely monitor electrolytes HYPERKALEMIA-resolved, potassium stable since admission TYPE 2 DIABETES MELLITUS WITH HYPERGLYCEMIA-glucose levels remain high despite resumption of metformin -4 times a day glucometers -Moderate dose sliding scale Humalog -Add Lantus 20 units subcutaneous twice daily -Continue therapy with metformin -Continue other outpatient medications DYSPNEA ON EXERTION-symptoms have become progressively worse over the past few months and really have not improved with current management, will require further evaluation. CT scan of the chest with PE protocol is already been performed and showed no evidence of pulmonary emboli or significant pulmonary disease. -Echocardiogram -Aston scan Cardiolite study in a.m. ACUTE ON CHRONIC RENAL INSUFFICIENCY-renal function stable -Closely monitor renal function and urine output METASTATIC PROSTATE CARCINOMA MAINTENANCE ISSUES -DVT prophylaxis; Lovenox 40 mg subcutaneous daily -GI prophylaxis; not indicated -Barros catheter; not indicated -Nutrition; consistent carb diet -Nicotine dependence; not required CODE STATUS-FULL CODE ADMISSION STATUS-this patient will be admitted to observation status, expect no more than a one night hospital stay for evaluation and management of problems as outlined above. DISPOSITION-anticipate discharge to home after the hospital stay. PRIMARY CARE PROVIDER-Rick Domínguez
[2018-09-26] MEDS ORDERED: Melatonin 3 MG Tab PO SCH (21:00)
[2018-09-26] MEDS: atorvaSTATin 10 MG Tab PO SCH (21:27)
[2018-09-27] MEDS: Insulin Lispro 100 Unit/ML 3 ML KwikPen SUBCUT SCH ×2 (07:57→12:00)
[2018-09-27] MEDS ORDERED: Aminophylline 250 MG/10 ML SDV IVPUSH ONE (09:30)
[2018-09-27] MEDS: Pantoprazole 40 MG Tab.CR PO SCH (10:33)
[2018-09-27] MEDS: glipiZIDE 5 MG Tab PO SCH (10:33)
[2018-09-27] MEDS: metFORMIN 500 MG Tab.ER PO SCH ×2 (10:33→13:21)
[2018-09-27] MEDS: Aspirin 81 MG Tab.Chew PO SCH (10:34)
[2018-09-27] MEDS: Gemfibrozil 600 MG Tab PO SCH (10:34)
[2018-09-27] MEDS: Losartan 50 MG Tab PO SCH (10:34)
[2018-09-27] MEDS: Liraglutide (rDNA Origin) 0.6 MG/0.1 ML 3 ML Pen SUBCUT SCH (10:35)
[2018-09-27] MEDS: Enoxaparin 40 MG/0.4 ML Syringe SUBCUT SCH (10:35)
[2018-09-27] MEDS: Insulin Glargine,Human Rec. Analog 100 Units/ML 3 ML Pen SUBCUT SCH (10:36)
--- NOTE | 2018-09-27 11:32 | NM ---
Nuclear medicine cardiac Lexiscan stress test. History: Dyspnea on exertion. Technique: The patient was stressed pharmacologically with the administration of Lexiscan. The patient received intravenously 11.2 millicuries of technetium 99 Myoview followed by rest imaging and 31.8 millicuries followed by stress imaging. Findings: There is a uniform distribution of the radiopharmaceutical throughout the myocardium on both stress and rest imaging. There are no findings of acute or chronic ischemia. There is normal wall motion. The cardiac ejection fraction is within normal limits equal to 67%. Impression: 1. Negative exam.
[2018-09-27 14:47] VITALS: BP 105/59
--- NOTE | 2018-09-27 15:07 | PCM.DCSUM1 ---
Discharge Summary - Hospital Course Brief History: Mr. Schulz is a 62-year-old gentleman who was admitted through the emergency department with weakness and lethargy secondary to hyperglycemia with underlying uncontrolled type 2 diabetes mellitus and metabolic acidosis. - Discharge Data Discharge Date: 09/27/18 Discharge Disposition: Home, Self-Care 01 Condition: Fair - Discharge Diagnosis/Problem(s) (1) Dyspnea on exertion SNOMED Code(s): 22153224 ICD Code: R06.09 - OTHER FORMS OF DYSPNEA Status: Acute Current Visit: Yes (2) Hyperglycemia due to type 2 diabetes mellitus SNOMED Code(s): 645480949033597, 122581401321322 ICD Code: E11.65 - TYPE 2 DIABETES MELLITUS WITH HYPERGLYCEMIA Status: Acute Current Visit: Yes Qualifiers: Diabetes mellitus residential insulin use: without queen producer use Qualified Code(s): E11.65 - Type 2 diabetes mellitus with hyperglycemia (3) Hyperkalemia SNOMED Code(s): 22740773 ICD Code: E87.5 - HYPERKALEMIA Status: Acute Current Visit: Yes (4) Diabetes mellitus type 2 SNOMED Code(s): 89109842 ICD Code: E11.9 - TYPE 2 DIABETES MELLITUS WITHOUT COMPLICATIONS Status: Chronic Current Visit: No (5) Prostate cancer metastatic to pelvis SNOMED Code(s): 45541430 ICD Code: C61 - MALIGNANT NEOPLASM OF PROSTATE; C79.89 - SECONDARY MALIGNANT NEOPLASM OF OTHER SPECIFIED SITES Status: Chronic Current Visit: Yes (6) Metabolic acidosis SNOMED Code(s): 23932314 ICD Code: E87.2 - ACIDOSIS Status: Acute Current Visit: Yes - Patient Summary/Data Hospital Course: Mr. Schulz is a 62-year-old gentleman who was admitted through the emergency department with history of progressive weakness, fatigue, nausea, and shortness of breath. He was recently diagnosed with metastatic prostate cancer and is close to beginning radiation therapy as well as chemotherapy. He has a known history of type 2 diabetes mellitus and ran out of his metformin approximately 9 days ago. Since then he has noted polydipsia as well as polyuria with progressive weakness and fatigue. He was into the oncology clinic today, labs were obtained showing evidence of acute on chronic renal insufficiency, hyperglycemia with a glucose of 600, and metabolic acidosis with elevation in anion gap and a decrease in carbon dioxide level to 11. He has received IV insulin as well as IV fluids in the emergency department and has felt somewhat improved. White blood cell count in the clinic was found to be elevated, he has no specific symptoms of localized infection and denies recent fever or chills. Follow-up labs obtained prior to admission show persistent but improving metabolic acidosis, elevation in serum ketones as well as lactic acid level. On admission he was given vigorous IV fluid replacement, with close monitoring of electrolytes and renal function. In addition he was given subcutaneous insulins on a sliding scale basis for management of hyperglycemia. He was started on long acting insulin Lantus twice daily. By the time of discharge his renal function was back to baseline and blood sugars were under much better control. He will be discharged on Lantus insulin 30 units twice daily. Glipizide will be discontinued but he will remain on the Victoza and metformin. Follow-up appointment will be scheduled with the clinical document improvement educator for October 08. He continued to report symptoms of shortness of breath after admission so further evaluation was obtained. CT scan of the chest with IV contrast showed no evidence of pulmonary emboli or significant pulmonary disease. Echocardiogram indicated normal left ventricular function with mild aortic stenosis but no other significant abnormalities. [facility] scan Cardiolite study was obtained on the morning of discharge showing normal left ventricular function and no evidence of significant ischemia. His shortness of breath that improved prior to discharge he was able to walk in the hallways with only mild symptoms. Activity will be as tolerated and he will remain on a consistent carb diet. Follow-up appointment should be scheduled with his primary care provider within one week. - Patient Instructions Diet: Diabetic Diet Activity: As Tolerated Other/Special Instructions: Please schedule follow-up appointment with primary care provider within one week. - Discharge Plan *PRESCRIPTION DRUG MONITORING PROGRAM REVIEWED*: No *COPY OF PRESCRIPTION DRUG MONITORING REPORT IN PATIENT SG: No Prescriptions/Med Rec: Insulin Glarg,Human.Rec.Analog [Lantus Solostar] 30 units SUBCUT BID #2 pen Home Medications: Home Meds Ferrous Sulfate [Iron] 325 mg PO DAILY 06/10/13 [History] Gemfibrozil 600 mg PO BID 06/10/13 [History] Omeprazole [Prilosec] 40 mg PO DAILY 06/10/13 [History] metFORMIN [Glucophage XR] 750 mg PO TID 02/10/14 [History] Aspirin [Children's Aspirin] 81 mg PO DAILY 06/16/16 [History] Losartan [Cozaar] 50 mg PO DAILY 06/16/16 [History] Liraglutide [Victoza] 1.2 mg SQ DAILY 11/21/17 [History] atorvaSTATin [Lipitor] 10 mg PO BEDTIME 01/30/18 [History] Insulin Glarg,Human.Rec.Analog [Lantus Solostar] 30 units SUBCUT BID #2 pen 08/05 [Rx] Referrals: Corinna Meléndez [Registered Dietitian] - 10/08/18 3:00 pm (Follow up with Corinna Ramírez ( [place]). Please bring your recorded home blood sugars for review.) Rick Domínguez PA [Primary Care Provider] - (Oncology from [facility] to call you later today. If you don't receive call. Call them at [phone]) - Discharge Summary/Plan Comment DC Time >30 min.: No - Patient Data Vitals - Most Recent: Last Vital Signs Temp 96.2 F 09/27/18 14:46 Pulse 101 H 09/27/18 14:46 Resp 18 09/27/18 14:46 BP 105/59 L 09/27/18 14:46 Pulse Ox 98 09/27/18 14:46 Weight - Most Recent: 170 lb I&O - Last 24 hours: Intake & Output 09/27/18 09/27/18 09/27/18 06:59 14:59 22:59 Intake Total 1366 350 Output Total 700 Balance 666 350 Lab Results - Last 24 hrs: Laboratory Results - last 24 hr 09/26/18 09/26/18 09/27/18 Range/Units 16:50 23:15 05:00 WBC (4.5-11.0) K/uL RBC (4.30-5.90) M/uL Hgb (12.0-15.0) g/dL Hct (40.0-54.0) % MCV (80-98) fL MCH (27-31) pg MCHC (32-36) % Plt Count (150-400) K/uL Neut % (Auto) (36-66) % Lymph % (Auto) (24-44) % Sargent % (Auto) (2-6) % Eos % (Auto) (2-4) % Baso % (Auto) (0-1) % Sodium 126 L 127 L 130 L (140-148) mmol/L Potassium 4.5 4.1 3.9 (3.6-5.2) mmol/L Chloride 94 L 97 L 99 L (100-108) mmol/L Carbon Dioxide 14 L 17 L 21 (21-32) mmol/L Anion Gap 22.5 H 17.1 H 13.9 (5.0-14.0) mmol/L BUN 18 15 10 (7-18) mg/dL Creatinine 0.7 L 0.6 L 0.6 L (0.8-1.3) mg/dL Est Cr Clr Drug Dosing 104.89 122.37 122.37 mL/min Estimated GFR (MDRD) > 60 > 60 > 60 (>60) Glucose 300 H 259 H 145 H (74-106) mg/dL Calcium 7.9 L 7.7 L 7.9 L (8.5-10.1) mg/dL Magnesium 2.0 (1.8-2.4) mg/dL 09/27/18 Range/Units 05:00 WBC 9.5 (4.5-11.0) K/uL RBC 3.53 L (4.30-5.90) M/uL Hgb 10.2 L (12.0-15.0) g/dL Hct 30.0 L (40.0-54.0) % MCV 85 (80-98) fL MCH 29 (27-31) pg MCHC 34 (32-36) % Plt Count 473 H (150-400) K/uL Neut % (Auto) 75 H (36-66) % Lymph % (Auto) 12 L (24-44) % Sargent % (Auto) 12 H (2-6) % Eos % (Auto) 1 L (2-4) % Baso % (Auto) 0 (0-1) % Sodium (140-148) mmol/L Potassium (3.6-5.2) mmol/L Chloride (100-108) mmol/L Carbon Dioxide (21-32) mmol/L Anion Gap (5.0-14.0) mmol/L BUN (7-18) mg/dL Creatinine (0.8-1.3) mg/dL Est Cr Clr Drug Dosing mL/min Estimated GFR (MDRD) (>60) Glucose (74-106) mg/dL Calcium (8.5-10.1) mg/dL Magnesium (1.8-2.4) mg/dL BALDO Results - Last 24 hrs: Microbiology 09/25/18 10:08 Aerobic Blood Culture - Preliminary Blood - Arm, Right NO GROWTH AFTER 2 DAYS Anaerobic Blood Culture - Preliminary NO GROWTH AFTER 2 DAYS Med Orders - Current: Current Medications Acetaminophen (Tylenol) 650 mg PO Q4H PRN PRN Reason: Pain (Mild 1-3)/fever Aspirin (Aspirin) 81 mg PO DAILY [facility] Last Admin: 09/27/18 10:34 Dose: 81 mg Atorvastatin Calcium (Lipitor) 10 mg PO BEDTIME [facility] Last Admin: 09/26/18 21:27 Dose: 10 mg Dextrose (Glutose 15) 15 gm PO ONETIME PRN PRN Reason: Hypoglycemia Dextrose/Water (Dextrose 50% In Water) 50 ml IV ONETIME PRN PRN Reason: Hypoglycemia Enoxaparin Sodium (Lovenox) 40 mg SUBCUT DAILY [facility] Last Admin: 09/27/18 10:35 Dose: 40 mg Gemfibrozil (Lopid) 600 mg PO BID [facility] Last Admin: 09/27/18 10:34 Dose: 600 mg Glipizide (Glucotrol) 10 mg PO BIDMEALS [facility] Last Admin: 09/27/18 10:33 Dose: 10 mg Sodium Chloride (Normal Saline) 1,000 mls @ 125 mls/hr IV ASDIRECTED [facility] Last Admin: 09/26/18 23:54 Dose: 125 mls/hr Insulin Glargine (Lantus Solostar) 20 units SUBCUT BID [facility] Last Admin: 09/27/18 10:36 Dose: 20 units Insulin Human Lispro (Humalog) 0 unit SUBCUT QIDACANDBED [facility]; Protocol Last Admin: 09/27/18 12:00 Dose: 12 units Liraglutide (Victoza) 1.2 mg SUBCUT DAILY [facility] Last Admin: 09/27/18 10:35 Dose: 1.2 mg Losartan Potassium (Cozaar) 50 mg PO DAILY [facility] Last Admin: 09/27/18 10:34 Dose: 50 mg Melatonin (Melatonin) 9 mg PO BEDTIME [facility] Last Admin: 09/26/18 21:26 Dose: 9 mg Metformin HCl (Glucophage Xr) 750 mg PO TIDMEALS [facility] Last Admin: 09/27/18 13:21 Dose: 750 mg Ondansetron HCl (Zofran) 4 mg IV Q4H PRN PRN Reason: Nausea/Vomiting Pantoprazole Sodium (Protonix) 40 mg PO ACBREAKFAST [facility] Last Admin: 09/27/18 10:33 Dose: 40 mg Polyethylene Glycol (Miralax) 17 gm PO DAILY PRN PRN Reason: Constipation Sodium Chloride (Saline Flush) 10 ml FLUSH ASDIRECTED PRN PRN Reason: Keep Vein Open Discontinued Medications Aminophylline (Aminophylline) 125 mg IVPUSH ONETIME ONE Stop: 09/27/18 09:31 Last Admin: 09/27/18 10:47 Dose: Not Given Sodium Chloride (Normal Saline) 1,000 mls @ 1,000 mls/hr IV .BOLUS ONE Stop: 09/25/18 10:51 Last Admin: 09/25/18 10:30 Dose: 1,000 mls/hr Sodium Chloride (Normal Saline) 500 mls @ 250 mls/hr IV .BOLUS MARLA Stop: 09/25/18 22:01 Sodium Chloride (Normal Saline) 1,000 mls @ 125 mls/hr IV ASDIRECTED MARLA Sodium Chloride (Normal Saline) 1,000 mls @ 500 mls/hr IV ASDIRECTED MARLA Stop: 09/25/18 21:01 Last Infusion: 09/25/18 18:59 Dose: Infused Magnesium Sulfate 2 gm/ Premix 50 mls @ 25 mls/hr IV Q6H MARLA Stop: 09/26/18 17:59 Last Admin: 09/26/18 15:35 Dose: 25 mls/hr Sodium Chloride (Normal Saline) 89 mls @ 4 mls/sec IV ASDIRECTED MARLA Stop: 09/26/18 11:30 Last Admin: 09/26/18 10:49 Dose: 4 mls/sec Sodium Chloride (Normal Saline) 1,000 mls @ 500 mls/hr IV ASDIRECTED MARLA Stop: 09/26/18 16:01 Last Admin: 09/26/18 13:21 Dose: 500 mls/hr Insulin Human Lispro (Humalog) 0 unit SUBCUT QIDACANDBED [facility]; Protocol Insulin Human Lispro (Humalog) 0 unit SUBCUT QIDACANDBED MARLA; Protocol Last Admin: 09/26/18 12:28 Dose: Not Given Insulin Human Regular (Humulin R) 12 unit SUBCUT ONETIME ONE Stop: 09/25/18 09:54 Last Admin: 09/25/18 10:37 Dose: 12 units Insulin Human Regular (Humulin R) 15 unit SUBCUT ONETIME ONE Stop: 09/25/18 12:10 Last Admin: 09/25/18 12:29 Dose: 15 units Iopamidol (Isovue-370 (76%)) 100 ml IV . DIRECTED MARLA Stop: 09/26/18 11:30 Last Admin: 09/26/18 10:48 Dose: 100 ml Potassium Chloride (Klor-Con M20) 40 meq PO ONETIME ONE Stop: 09/25/18 19:05 Last Admin: 09/25/18 19:57 Dose: 40 meq Regadenoson (Lexiscan) 0.4 mg IVPUSH ONETIME ONE Stop: 09/27/18 09:01 Last Admin: 09/27/18 08:52 Dose: 0.4 mg Sodium Chloride (Saline Flush) 10 ml FLUSH ONETIME ONE Stop: 09/26/18 10:26 Last Admin: 09/26/18 10:49 Dose: 10 ml Sodium Polystyrene Sulfonate (Kayexalate) 15 gm PO ONETIME ONE Stop: 09/25/18 16:01 Last Admin: 09/25/18 22:28 Dose: Not Given - Exam General: Reports: Alert, Oriented, Cooperative, No Acute Distress Lungs: Reports: Clear to Auscultation, Normal Respiratory Effort Cardiovascular: Reports: Regular Rate, Regular Rhythm, No Murmurs GI/Abdominal Exam: Soft, Non-Tender, No Organomegaly, No Distention
--- NOTE | 2018-09-28 03:20 | STRESS ---
DATE OF SERVICE: 09/27/2018 PROCEDURE: Lexiscan Cardiolite study. TECHNIQUE: Mr. Schulz was infused with usual dose of Lexiscan followed by the Cardiolite injection given per protocol. He experienced mild symptoms of shortness of breath and chest pressure with Lexiscan infusion. These symptoms resolved spontaneously and did not require reversal medication. Resting ECG, sinus rhythm, rate of 91, normal axis and intervals. No acute ST-segment changes or T-wave abnormalities were noted. Similar findings were seen on the post hyperventilation and standing ECGs. No significant ST-segment changes or T-wave abnormalities were seen with Lexiscan infusion or during the post infusion period. No significant dysrhythmias were noted during the monitoring period. He did experience symptoms as reported above. IMPRESSION: Unremarkable Lexiscan portion of Lexiscan Cardiolite study. Alfie Salazar MD /[id number]
== END 2018-09-27 13:20 | disposition home or self-care (01) | DRG 638 ==
LOC: JP.ED 09:49 → JP.MS 15:06 → OBSVTOIN 09-26 14:09
PROVIDERS: ADMIT Hospitalist; ATTEND Hospitalist
DX: E11.65 Type 2 diabetes mellitus with hyperglycemia (principal); C79.11 Secondary malignant neoplasm of bladder; E87.2 Acidosis; C79.89 Secondary malignant neoplasm of other specified sites; E11.22 Type 2 diabetes mellitus with diabetic chronic kidney disease; N18.3 Chronic kidney disease, stage 3 (moderate); I12.9 Hypertensive chronic kidney disease with stage 1 through stage 4 chronic kidney disease, or unspecified chronic kidney disease; E86.0 Dehydration; E87.5 Hyperkalemia; I35.0 Nonrheumatic aortic (valve) stenosis; H54.7 Unspecified visual loss; H91.90 Unspecified hearing loss, unspecified ear; E78.00 Pure hypercholesterolemia, unspecified; Z85.46 Personal history of malignant neoplasm of prostate; Z79.84 Long term (current) use of oral hypoglycemic drugs; Z79.899 Other long term (current) drug therapy; Z79.82 Long term (current) use of aspirin; Z88.0 Allergy status to penicillin
CPT/HCPCS: 36415; 36600; 71275; 71275-26; 78452; 78452-26; 80048; 81001; 82009; 82803; 82962; 83605; 83735; 84132; 84484; 85025; 87040; 93017; 93306; 96361; 96374; 99220; 99284-25; A9270-GY; A9500; J1650; J1815; J1815-GY; J2785; J3475; J7030; Q9967

== ENCOUNTER 2020-05-20 06:55 | Emergency (ER) | payer MEDICARE, BC ==
[2020-05-20 07:12] VITALS: BP 150/83; PULSE 98
[2020-05-20] MEDS ORDERED: Ketorolac 30 MG/ML SDV IM ONE (07:24)
--- NOTE | 2020-05-20 07:27 | EDM.PDOC ---
ED HPI GENERAL MEDICAL PROBLEM - General Chief Complaint: Lower Extremity Injury/Pain Stated Complaint: LEFT FOOT PAIN Time Seen by Provider: 05/20/20 07:21 Source of Information: Reports: Patient, Family, RN Notes Reviewed History Limitations: Reports: No Limitations - History of Present Illness INITIAL COMMENTS - FREE TEXT/NARRATIVE: 64-year-old gentleman presents emergency department a complaint of painful red toe on his left foot as well as painful left ankle, he states this started 4 5 days ago has progressively gotten worse he did size some oxycodone without much relief he does have a history of bladder cancer currently on chemotherapy he is in a 3-month hiatus has been on extensive steroids as well. Denies any fevers it is warm to the touch tender Left Ankle Pain Score (Numeric/FACES): 8 - Related Data Allergies Allergy/AdvReac Type Severity Reaction Status Date / Time Penicillins Allergy Shortness Verified 05/20/20 07:05 of Breath Home Meds: Home Meds Ferrous Sulfate [Iron] 325 mg PO DAILY 06/10/13 [History] Omeprazole [Prilosec] 20 mg PO DAILY 06/10/13 [History] metFORMIN [Glucophage XR] 1,000 mg PO BID 02/10/14 [History] Aspirin [Children's Aspirin] 81 mg PO DAILY 06/16/16 [History] Losartan [Cozaar] 100 mg PO DAILY 06/16/16 [History] atorvaSTATin [Lipitor] 10 mg PO BEDTIME 01/30/18 [History] Dulaglutide [Trulicity] 1.5 mg SQ Q7D 12/26/19 [History] Insulin Aspart [NovoLOG] 14 ml SQ ASDIRECTED 12/26/19 [History] Insulin Degludec [Tresiba] 18 unit SQ Q24H 12/26/19 [History] hydroCHLOROthiazide [Hydrochlorothiazide] 25 mg PO DAILY 12/26/19 [History] ondansetron HCL [Zofran] 8 mg PO Q8H PRN 12/26/19 [History] Sulfamethoxazole/Trimethoprim [Bactrim Ds Tablet] 1 each PO BID #20 tablet 05/20/20 [Rx] Past Medical History HEENT History: Reports: Hard of Hearing, Impaired Vision, Otitis Media Cardiovascular History: Reports: High Cholesterol, Hypertension Gastrointestinal History: Reports: Colon Polyp Genitourinary History: Reports: Other (See Below) Other Genitourinary History: cancer urethra, bladder, prostate metastasis Musculoskeletal History: Reports: Arthritis, Fracture Other Musculoskeletal History: history of left middle finger fracture secondary to football year ago Endocrine/Metabolic History: Reports: Diabetes, Type II, Obesity/BMI 30+ Hematologic History: Reports: Blood Transfusion(s) Other Hematologic History: Gastric Ulcer 2011 Oncologic (Cancer) History: Reports: Bone, Colon, Liver, Lymphoma, Metastatic, Prostate, Other (See Below) Other Oncologic History: Urethra - Infectious Disease History Infectious Disease History: Reports: Measles - Past Surgical History Head Surgeries/Procedures: Reports: None HEENT Surgical History: Reports: Other (See Below) Other HEENT Surgeries/Procedures: Cyst inner ear Cardiovascular Surgical History: Reports: None GI Surgical History: Reports: Appendectomy, Colon, Colonoscopy, EGD, Hernia, Abdominal, Other (See Below) Other GI Surgeries/Procedures: bowel resection-2016 Male Surgical History: Reports: Prostatectomy, Other (See Below) Other Male Surgeries/Procedures: Bladder tumor, urethra biopsies Endocrine Surgical History: Reports: None Neurological Surgical History: Reports: Vertebroplasty Musculoskeletal Surgical History: Reports: Arthroscopic Knee, Hip Replacement, Knee Replacement, Other (See Below) Other Musculoskeletal Surgeries/Procedures:: Hip revision, verteoplasty Oncologic Surgical History: Reports: None Dermatological Surgical History: Reports: None Social & Family History - Family History Family Medical History: Noncontributory Cardiac: Reports: Hypertension, [place] Neurological: Reports: Neuropathy, Diabetic, Seizure Endocrine/Metabolic: Reports: Diabetes, type II Oncologic: Reports: Prostate - Tobacco Use Smoking Status *Q: Never Smoker Second Hand Smoke Exposure: No - Caffeine Use Caffeine Use: Reports: None Other Caffeine Use: 2-3 cups/day - Recreational Drug Use Recreational Drug Use: No Review of Systems - Review of Systems Review Of Systems: See Below Constitutional: Denies: Fever Musculoskeletal: Reports: Foot Pain Skin: Reports: Pallor, Erythema. Denies: Wound ED EXAM, GENERAL - Physical Exam Exam: See Below Free Text/Narrative:: Examination of the left foot I do appreciate erythema around the toe as well as the ankle predominantly on the medial side it is warm to the touch tender to touch any movement can exacerbate pain pedal pulses +2 I do not detect any breaks in the skin he can ambulate. Exam Limited By: No Limitations General Appearance: Alert, WD/WN, No Apparent Distress Course - Vital Signs Last Recorded V/S: Last Vital Signs Temp 98.4 F 05/20/20 07:12 Pulse 98 05/20/20 07:12 Resp 16 05/20/20 07:12 BP 150/83 H 05/20/20 07:12 Pulse Ox 98 05/20/20 07:12 - Orders/Labs/Meds Labs: Laboratory Tests 05/20/20 05/20/20 05/20/20 Range/Units 07:35 07:35 07:35 WBC 13.1 H (4.5-11.0) K/uL RBC 3.28 L (4.30-5.90) M/uL Hgb 8.9 L D (12.0-15.0) g/dL Hct 29.2 L (40.0-54.0) % MCV 89 (80-98) fL MCH 27 (27-31) pg MCHC 31 L (32-36) % Plt Count 611 H (150-400) K/uL Neut % (Auto) 86 H (36-66) % Lymph % (Auto) 5 L (24-44) % [place] % (Auto) 8 H (2-6) % Eos % (Auto) 1 L (2-4) % Baso % (Auto) 0 (0-1) % Sodium 137 L (140-148) mmol/L Potassium 4.2 (3.6-5.2) mmol/L Chloride 100 (100-108) mmol/L Carbon Dioxide 26 (21-32) mmol/L Anion Gap 15.2 H (5.0-14.0) mmol/L BUN 14 (7-18) mg/dL Creatinine 1.0 (0.8-1.3) mg/dL Est Cr Clr Drug Dosing 68.85 mL/min Estimated GFR (MDRD) > 60 (>60) Glucose 213 H (74-106) mg/dL Uric Acid 3.2 L (3.5-7.2) mg/dL Calcium 8.5 (8.5-10.1) mg/dL Total Bilirubin 0.3 (0.2-1.0) mg/dL AST 18 (15-37) U/L ALT 15 (12-78) U/L Alkaline Phosphatase 217 H (46-116) U/L Total Protein 7.2 (6.4-8.2) g/dL Albumin 2.4 L (3.4-5.0) g/dL Globulin 4.8 H (2.3-3.5) g/dL Albumin/Globulin Ratio 0.5 L (1.2-2.2) Meds: Medications Discontinued Medications Generic Name Dose Route Start Last Admin Trade Name Carolann PRN Reason Stop Dose Admin Ketorolac Tromethamine 30 mg 05/20/20 07:24 05/20/20 07:28 Toradol IM 05/20/20 07:25 30 mg ONETIME ONE Administration Departure - Departure Time of Disposition: 08:35 Disposition: Home, Self-Care 01 Condition: Fair Clinical Impression: Cellulitis of left foot - Discharge Information Prescriptions: Sulfamethoxazole/Trimethoprim [Bactrim Ds Tablet] 1 each PO BID #20 tablet Instructions: Cellulitis, Adult Referrals: PCP,None [Primary Care Provider] - Forms: ED Department Discharge Additional Instructions: Take full course of antibiotics, your antibiotics have been faxed to [facility] pharmacy, please follow-up with your primary care next week for further evaluation and treatment if needed Sepsis Event Note (ED) - Evaluation Sepsis Screening Result: No Definite Risk - Focused Exam Vital Signs: Vital Signs Temp Pulse Resp BP Pulse Ox 05/20/20 07:12 98.4 F 98 16 150/83 H 98 05/20/20 07:11 98.4 F 98 16 150/83 H 98 - Assessment/Plan Plan: Assessment Acuity = acute Site and laterality = cellulitis left foot Etiology = probable bacterial cause Manifestations = erythema, pallor Location of injury = Home Lab values = WBC elevated 13.1 consistent leukocytosis, hemoglobin low at 8.9 consistent with normochromic anemia uric acid within normal range at 3.2 albumin low at 2.4 consistent with hypoalbuminemia Plan I did review lab work with him elected to try an empiric trial of antibiotics because of penicillin allergy went with Bactrim DS 1 tab p.o. twice daily those medications faxed to [facility] he is can have close follow-up next week with his primary care This note was dictated using [employer] voice recognition software please call with any questions on syntax or grammar.
== END 2020-05-20 08:55 | disposition home or self-care (01) ==
LOC: JP.ED 06:55
DX: L03.116 Cellulitis of left lower limb (principal); I10 Essential (primary) hypertension; E11.9 Type 2 diabetes mellitus without complications; E66.9 Obesity, unspecified; Z88.0 Allergy status to penicillin; Z68.35 Body mass index [BMI] 35.0-35.9, adult; Z79.899 Other long term (current) drug therapy; Z90.49 Acquired absence of other specified parts of digestive tract
CPT/HCPCS: 36415; 80053; 84550; 85025; 96372; 99283; J1885

== ENCOUNTER 2020-06-16 12:03 | Emergency (ER) | payer MEDICARE, BC ==
[2020-06-16] MEDS ORDERED: Magnesium Sulfate/Water 2 GM in Premix Bag 1 BAG IV ONE ×2 (13:06→15:31)
[2020-06-16] MEDS ORDERED: Sodium Chloride 0.9% 1,000 ML IV SCH (13:15)
--- NOTE | 2020-06-16 13:50 | EDM.PDOC ---
ED HPI GENERAL MEDICAL PROBLEM - General Chief Complaint: General Stated Complaint: TOLD BY INFUSION THAT MAGNESIUM IS LOW Time Seen by Provider: 06/16/20 13:45 Source of Information: Reports: Patient History Limitations: Reports: No Limitations - History of Present Illness INITIAL COMMENTS - FREE TEXT/NARRATIVE: pt has had marked diarrhes since Sunday. They duid not get a stool speciman in the infusion center. He was given a liter of fluid and sent home with lomotil and imodium. He was found to have a mag of .6 so he is back here for a magneuim infusion. He has had a new chemo starting last week. He has known metastatic prostae Ca. He is also a diabetic. Onset: Gradual, Other (pt has had diarhea since Sunday. ) Duration: Hour(s): Location: Reports: Abdomen, Other (pt has a low mag. ) Associated Symptoms: Reports: Shortness of Breath Lower Back Pain Score (Numeric/FACES): 4 - Related Data Allergies Allergy/AdvReac Type Severity Reaction Status Date / Time Penicillins Allergy Shortness Verified 06/16/20 13:24 of Breath Home Meds: Home Meds Ferrous Sulfate [Iron] 325 mg PO DAILY 06/10/13 [History] Omeprazole [Prilosec] 20 mg PO DAILY 06/10/13 [History] metFORMIN [Glucophage XR] 1,000 mg PO BID 02/10/14 [History] Aspirin [Children's Aspirin] 81 mg PO DAILY 06/16/16 [History] Losartan [Cozaar] 100 mg PO DAILY 06/16/16 [History] atorvaSTATin [Lipitor] 10 mg PO BEDTIME 01/30/18 [History] Dulaglutide [Trulicity] 1.5 mg SQ Q7D 12/26/19 [History] Insulin Aspart [NovoLOG] 12 - 16 ml SQ ASDIRECTED 12/26/19 [History] Insulin Degludec [Tresiba] 18 unit SQ Q24H 12/26/19 [History] hydroCHLOROthiazide [Hydrochlorothiazide] 25 mg PO DAILY 12/26/19 [History] ondansetron HCL [Zofran] 8 mg PO Q8H PRN 12/26/19 [History] Atropine/Diphenoxylate [Diphenoxylate-Atropine] 1 - 2 tab PO ASDIRECTED PRN 06/16/20 [History] Loperamide HCl [Loperamide] 4 mg PO ASDIRECTED PRN 06/16/20 [History] Past Medical History HEENT History: Reports: Hard of Hearing, Impaired Vision, Otitis Media Cardiovascular History: Reports: High Cholesterol, Hypertension Gastrointestinal History: Reports: Colon Polyp Genitourinary History: Reports: Other (See Below) Other Genitourinary History: cancer urethra, bladder, prostate metastasis Musculoskeletal History: Reports: Arthritis, Fracture Other Musculoskeletal History: history of left middle finger fracture secondary to football year ago Neurological History: Reports: None Endocrine/Metabolic History: Reports: Diabetes, Type II, Obesity/BMI 30+ Hematologic History: Reports: Blood Transfusion(s) Other Hematologic History: Gastric Ulcer 2011 Oncologic (Cancer) History: Reports: Bone, Colon, Liver, Lymphoma, Metastatic, Prostate, Other (See Below) Other Oncologic History: Urethra - Infectious Disease History Infectious Disease History: Reports: Measles - Past Surgical History Head Surgeries/Procedures: Reports: None HEENT Surgical History: Reports: Other (See Below) Other HEENT Surgeries/Procedures: Cyst inner ear Cardiovascular Surgical History: Reports: None GI Surgical History: Reports: Appendectomy, Colon, Colonoscopy, EGD, Hernia, Abdominal, Other (See Below) Other GI Surgeries/Procedures: bowel resection-2016 Male Surgical History: Reports: Prostatectomy, Other (See Below) Other Male Surgeries/Procedures: Bladder tumor, urethra biopsies Endocrine Surgical History: Reports: None Neurological Surgical History: Reports: Vertebroplasty Musculoskeletal Surgical History: Reports: Arthroscopic Knee, Hip Replacement, Knee Replacement, Other (See Below) Other Musculoskeletal Surgeries/Procedures:: Hip revision, verteoplasty Oncologic Surgical History: Reports: None Dermatological Surgical History: Reports: None Social & Family History - Family History Family Medical History: Noncontributory Cardiac: Reports: Hypertension, [place] Neurological: Reports: Neuropathy, Diabetic, Seizure Endocrine/Metabolic: Reports: Diabetes, type II Oncologic: Reports: Prostate - Tobacco Use Smoking Status *Q: Never Smoker - Caffeine Use Caffeine Use: Reports: None Other Caffeine Use: 2-3 cups/day ED ROS GENERAL - Review of Systems Review Of Systems: See Below Constitutional: Reports: Weakness, Other (pt has been having loose stools His mag was found to be .6) HEENT: Reports: No Symptoms Respiratory: Reports: Shortness of Breath Cardiovascular: Reports: No Symptoms Endocrine: Reports: No Symptoms GI/Abdominal: Reports: Diarrhea : Reports: No Symptoms Musculoskeletal: Reports: No Symptoms Skin: Reports: No Symptoms Neurological: Reports: No Symptoms ED EXAM, GENERAL - Physical Exam Exam: See Below Free Text/Narrative:: pt arrived with a history of a very low Mag at .6. He has been having diarrhea since Sun. He was seen at the infusion center today and given a liter of fluid. Exam Limited By: No Limitations General Appearance: Alert, No Apparent Distress, Anxious Ears: Normal TMs Nose: Normal Inspection Throat/Mouth: Normal Inspection Head: Atraumatic Neck: Normal Inspection Respiratory/Chest: No Respiratory Distress, Other (pt has noted increased sob. He had a chest xray which was normal. ) Cardiovascular: Regular Rate, Rhythm GI/Abdominal: Soft, Non-Tender (Male) Exam: Deferred Rectal (Males) Exam: Deferred, Other (pt had no further loose stools while in er. ) Back Exam: Normal Inspection Extremities: Normal Inspection Neurological: Alert, Oriented, Normal Cognition Course - Vital Signs Last Recorded V/S: Last Vital Signs Temp 36.3 C 06/16/20 13:21 Pulse 83 06/16/20 15:22 Resp 21 H 06/16/20 15:22 BP 152/80 H 06/16/20 15:22 Pulse Ox 90 L 06/16/20 15:22 - Orders/Labs/Meds Orders: Active Orders 24 hr Category Date Time Status CLOS DIFFICILE PCR W/REFLEX [RM] Stat Lab 06/16/20 13:51 Ordered Magnesium Sulfate/Water [Magnesium Sulfate in Water Med 06/16/20 15:31 Active Premix] 2 gm Premix Bag 1 bag IV ONETIME Sodium Chloride 0.9% [Normal Saline] 1,000 ml Med 06/16/20 13:15 Active IV ASDIRECTED Medication Orders Sodium Chloride (Normal Saline) 1,000 mls @ 999 mls/hr IV ASDIRECTED MARLA Last Admin: 06/16/20 14:00 Dose: 999 mls/hr Documented by: PREILOR Magnesium Sulfate 2 gm/ Premix 50 mls @ 25 mls/hr IV ONETIME ONE Stop: 06/16/20 17:30 Last Admin: 06/16/20 16:22 Dose: 25 mls/hr Documented by: PREILOR Labs: Laboratory Tests 06/16/20 Range/Units 15:48 Magnesium 1.2 L D (1.8-2.4) mg/dL Meds: Medications Generic Name Dose Route Start Last Admin Trade Name Freq PRN Reason Stop Dose Admin Sodium Chloride 1,000 mls @ 999 mls/hr 06/16/20 13:15 06/16/20 14:00 Normal Saline IV 999 mls/hr ASDIRECTED MARLA Administration Magnesium Sulfate 2 gm/ Premix 50 mls @ 25 mls/hr 06/16/20 15:31 06/16/20 16:22 IV 06/16/20 17:30 25 mls/hr ONETIME ONE Administration Discontinued Medications Generic Name Dose Route Start Last Admin Trade Name Freq PRN Reason Stop Dose Admin Magnesium Sulfate 2 gm/ Premix 50 mls @ 25 mls/hr 06/16/20 13:06 06/16/20 14:01 IV 06/16/20 15:05 25 mls/hr ONETIME ONE Administration Insulin Glargine 10 units 06/16/20 14:11 06/16/20 14:15 Lantus Solostar SUBCUT 06/16/20 14:12 10 units DAILY ONE Administration Magnesium Oxide 800 mg 06/16/20 15:13 06/16/20 16:20 Magnesium Oxide PO 06/16/20 15:14 800 mg ONETIME ONE Administration Metformin HCl 1,000 mg 06/16/20 13:52 06/16/20 14:16 Glucophage PO 06/16/20 13:53 1,000 mg ONETIME ONE Administration - Re-Assessments/Exams Free Text/Narrative Re-Assessment/Exam: 06/16/20 17:24 pt was given 2 gm iv and his Mag was rechecked and it was 1.2. He was given another 2 gm of magnesium Departure - Departure Time of Disposition: 17:25 Disposition: Home, Self-Care 01 Condition: Fair Clinical Impression: Hypomagnesemia, Dehydration, CA of prostate - Discharge Information Referrals: Yumiko Kirkpatrick PA-C [Primary Care Provider] - Forms: ED Department Discharge Care Plan Goals: mag oxide 400mg daily, rtc to clinic Sunday to infusion center to recheck mag. notify us or the infusion center if diarrhea becomes very severe. push liquids use yogurt and probiotic. Sepsis Event Note (ED) - Evaluation Sepsis Screening Result: No Definite Risk - Focused Exam Vital Signs: Vital Signs Temp Pulse Resp BP Pulse Ox 06/16/20 15:22 83 21 H 152/80 H 90 L 06/16/20 13:21 36.3 C 85 19 164/76 H 97 06/16/20 13:05 36.3 C 85 19 164/76 H 97 - My Orders Last 24 Hours: My Active Orders 06/16/20 13:15 Sodium Chloride 0.9% [Normal Saline] 1,000 ml IV ASDIRECTED 06/16/20 13:51 CLOS DIFFICILE PCR W/REFLEX [RM] Stat 06/16/20 15:31 Magnesium Sulfate/Water [Magnesium Sulfate in Water Premix] 2 gm Premix Bag 1 bag IV ONETIME - Assessment/Plan Last 24 Hours: My Active Orders 06/16/20 13:15 Sodium Chloride 0.9% [Normal Saline] 1,000 ml IV ASDIRECTED 06/16/20 13:51 CLOS DIFFICILE PCR W/REFLEX [RM] Stat 06/16/20 15:31 Magnesium Sulfate/Water [Magnesium Sulfate in Water Premix] 2 gm Premix Bag 1 bag IV ONETIME
[2020-06-16] MEDS ORDERED: metFORMIN 500 MG Tab PO ONE (13:52)
[2020-06-16] MEDS ORDERED: Insulin Glargine,Human Rec. Analog 100 Units/ML 3 ML Pen SUBCUT ONE (14:11)
--- NOTE | 2020-06-16 15:02 | CR ---
CHEST: Portable 06/16/2020 at 2:48 PM CLINICAL HISTORY:SOB COMPARISON:CT March 2020 FINDINGS: The heart size, pulmonary vascularity and hilar structures are normal. No infiltrate effusion or pneumothorax is seen. IMPRESSION: No acute cardiopulmonary process.
[2020-06-16] MEDS ORDERED: Magnesium Oxide 400 MG Tab PO ONE (15:13)
[2020-06-16 18:32] VITALS: BP 138/78; PULSE 79
== END 2020-06-16 18:45 | disposition home or self-care (01) ==
LOC: JP.ED 12:03
DX: E83.42 Hypomagnesemia (principal); C79.82 Secondary malignant neoplasm of genital organs; E86.0 Dehydration; I10 Essential (primary) hypertension; E78.00 Pure hypercholesterolemia, unspecified; E11.9 Type 2 diabetes mellitus without complications; E66.9 Obesity, unspecified; Z90.49 Acquired absence of other specified parts of digestive tract; Z88.0 Allergy status to penicillin; Z79.4 Long term (current) use of insulin; Z79.82 Long term (current) use of aspirin; Z79.899 Other long term (current) drug therapy; Z68.32 Body mass index [BMI] 32.0-32.9, adult
CPT/HCPCS: 36415; 71045; 83735; 96365; 96366; 99284; 99285; A9270; J1815; J3475; J7030

== ENCOUNTER 2020-07-05 08:52 | Day surgery (SDC) | payer MEDICARE, BC ==
[~2020-07-05 08:52] MED LIST: Bupivacaine 0.5% 50 ML MDV ONE; Lidocaine 1% with EPINEPHrine 1:100,000 50 ML MDV ONE; Midazolam 1 MG/ML 2 ML SDV ONE; Propofol 200 MG/20 ML SDV ONE; fentaNYL 100 MCG/2 ML SDV ONE
[2020-07-05] MEDS ORDERED: Acetaminophen 500 MG Tab PO ONE (09:00)
[2020-07-05] MEDS ORDERED: Dextrose 5%-Lactated Ringers 1,000 ML IV SCH (10:00)
[2020-07-05] MEDS ORDERED: ceFAZolin 2 GM in Premix Bag 1 BAG IV ONE (10:15)
[2020-07-05] MEDS ORDERED: Midazolam 1 MG/ML 2 ML SDV ONE (10:47)
[2020-07-05] MEDS ORDERED: Propofol 200 MG/20 ML SDV ONE (10:55)
[2020-07-05 12:23] VITALS: BP 130/75; PULSE 76
--- NOTE | 2020-07-12 14:22 | OR ---
DATE OF PROCEDURE: 07/05/2020 SURGEON: Johnny Rapp MD PREOPERATIVE DIAGNOSIS: Indications for central venous access. POSTOPERATIVE DIAGNOSIS: Indications for central venous access. OPERATIVE PROCEDURE: Placement of Bard PowerPort via left subclavian vein approach ([id number]). ANESTHESIA: Local plus IV sedation. INDICATIONS FOR PROCEDURE: This is a 64-year-old male who is being treated for prostate carcinoma with intermittent IV therapy. At this point, venous access has become difficult, and they referred him for a port placement. Potential risks including bleeding, infection, pneumohemothorax, injury to vasculature, or possible problems with the port becoming infected or occluded were reviewed, and the patient wishes to proceed. DETAILS OF PROCEDURE: The patient was taken to the operating room and placed in a supine position. After IV sedation was administered, the upper chest and neck areas were prepped and draped. The left subclavian area was anesthetized with 1% lidocaine mixed with Marcaine. The left subclavian vein was then cannulated. Guidewire manipulated from that point into the superior vena cava. Some additional local was injected. A transverse infraclavicular incision was made and carried down through the skin and subcutaneous tissue and through the pectoralis major fascia. In that plane, a port pocket was bluntly constructed. The port was then assembled, flushed with heparinized saline, placed into the pocket, and the catheter cut such that the tip would lie in the area of the superior vena cava and right atrial junction. The catheter was then positioned into that area over the introducer and peel-away catheter without difficulty. Good in and outflow was confirmed within the port, which was then flushed once again with heparinized saline. Incision was closed with some 3-0 and 4-0 Vicryl stitch deep and a 4-0 Vicryl subcuticular stitch. Dressing was applied. The patient was taken to the recovery room in satisfactory condition. There were no evident complications. Johnny Rapp MD /[id number]
== END 2020-07-05 12:35 | disposition home or self-care (01) ==
LOC: JP.SDS 08:52
PROVIDERS: ATTEND Surgery
DX: C61 Malignant neoplasm of prostate (principal); I10 Essential (primary) hypertension; C18.9 Malignant neoplasm of colon, unspecified; E11.9 Type 2 diabetes mellitus without complications
CPT/HCPCS: 36561; 77001; A9270; C1788; J0690; J1642; J2250; J2704; J3010; J3490; J7121

== ENCOUNTER 2020-09-27 10:00 | Emergency (ER) | payer MEDICARE, BC ==
[2020-09-27] MEDS ORDERED: Magnesium Sulfate/Water 2 GM/50 ML BAG IV ONE (10:41)
[2020-09-27] MEDS ORDERED: Magnesium Oxide 400 MG Tab PO ONE (10:41)
[2020-09-27] MEDS ORDERED: Lactated Ringers 1,000 ML IV ONE (10:41)
--- NOTE | 2020-09-27 10:46 | EDM.PDOC ---
ED HPI GENERAL MEDICAL PROBLEM - General Chief Complaint: General Stated Complaint: LT CHEST AND SHOULDER PAIN Time Seen by Provider: 09/27/20 10:35 Source of Information: Reports: Patient, RN Notes Reviewed History Limitations: Reports: No Limitations - History of Present Illness INITIAL COMMENTS - FREE TEXT/NARRATIVE: 64-year-old gentleman presents emergency department a complaint of chest and shoulder pain. He was in the infusion clinic evaluated by nursing staff does have a history of prostate cancer with metastases after consultation with the oncology provider recommended transfer to the emergency department for further evaluation. Blood work was performed and then a confusion clinic which included a CBC and a CMP as well as magnesium remarkable from that lab work is WBC slightly elevated 12.1 hemoglobin low at 8.0 consistent with normochromic anemia glucose at 196 consistent hyperglycemia and magnesium low at 1.2 consistent with hypomagnesemia. He states he has been having chest pain for 5 days it is predominantly in the left shoulder but then does radiate up into his neck worse with a deep breath no nausea or vomiting no diaphoresis does feel short of breath Left lateral chest ,left shoulderblade and now back of neck Pain Score (Numeric/FACES): 5 - Related Data Allergies Allergy/AdvReac Type Severity Reaction Status Date / Time Penicillins Allergy Shortness Verified 09/27/20 10:30 of Breath Home Meds: Home Meds Ferrous Sulfate [Iron] 325 mg PO DAILY 06/10/13 [History] Omeprazole [Prilosec] 20 mg PO DAILY 06/10/13 [History] Aspirin [Children's Aspirin] 81 mg PO DAILY 06/16/16 [History] Losartan [Cozaar] 100 mg PO DAILY 06/16/16 [History] atorvaSTATin [Lipitor] 10 mg PO BEDTIME 01/30/18 [History] Dulaglutide [Trulicity] 1.5 mg SQ Q7D 12/26/19 [History] Insulin Aspart [NovoLOG] 12 - 16 ml SQ ASDIRECTED 12/26/19 [History] Insulin Degludec [Tresiba] 18 unit SQ Q24H 12/26/19 [History] hydroCHLOROthiazide [Hydrochlorothiazide] 25 mg PO DAILY 12/26/19 [History] ondansetron HCL [Zofran] 8 mg PO Q8H PRN 12/26/19 [History] Atropine/Diphenoxylate [Diphenoxylate-Atropine] 1 - 2 tab PO ASDIRECTED PRN 06/16/20 [History] Loperamide HCl [Loperamide] 4 mg PO ASDIRECTED PRN 06/16/20 [History] Insulin Aspart [NovoLOG] 18 units SUBCUT ACBREAKFAST 07/01/20 [History] Magnesium Oxide 400 mg PO BID 07/01/20 [History] Prochlorperazine Maleate [Compazine] 10 mg PO Q6H PRN 07/01/20 [History] dexAMETHasone [Dexamethasone] 8 mg PO ASDIRECTED 07/01/20 [History] metFORMIN [Glucophage] 1,000 mg PO BID 08/23/20 [History] Past Medical History HEENT History: Reports: Hard of Hearing, Impaired Vision, Otitis Media Cardiovascular History: Reports: High Cholesterol, Hypertension Gastrointestinal History: Reports: Colon Polyp Genitourinary History: Reports: Other (See Below) Other Genitourinary History: cancer urethra, bladder, prostate metastasis Musculoskeletal History: Reports: Arthritis, Fracture Other Musculoskeletal History: history of left middle finger fracture secondary to football year ago. mets to bone Endocrine/Metabolic History: Reports: Diabetes, Type II, Obesity/BMI 30+ Hematologic History: Reports: Blood Transfusion(s) Other Hematologic History: Gastric Ulcer 2012 Oncologic (Cancer) History: Reports: Bone, Colon, Liver, Lymphoma, Metastatic, Prostate, Other (See Below) Other Oncologic History: Urethra - Infectious Disease History Infectious Disease History: Reports: Chicken Pox - Past Surgical History Head Surgeries/Procedures: Reports: None HEENT Surgical History: Reports: Other (See Below) Other HEENT Surgeries/Procedures: Cyst inner ear Cardiovascular Surgical History: Reports: None GI Surgical History: Reports: Appendectomy, Colon, Colonoscopy, EGD, Hernia, Abdominal, Other (See Below) Other GI Surgeries/Procedures: bowel resection-2016 Male Surgical History: Reports: Prostatectomy, Other (See Below) Other Male Surgeries/Procedures: Bladder tumor, urethra biopsies Endocrine Surgical History: Reports: None Neurological Surgical History: Reports: Vertebroplasty Musculoskeletal Surgical History: Reports: Arthroscopic Knee, Hip Replacement, Knee Replacement, Other (See Below) Other Musculoskeletal Surgeries/Procedures:: Hip revision, verteoplasty Oncologic Surgical History: Reports: None Dermatological Surgical History: Reports: None Social & Family History - Family History Family Medical History: No Pertinent Family History Cardiac: Reports: Hypertension, [place] Neurological: Reports: Neuropathy, Diabetic, Seizure Endocrine/Metabolic: Reports: Diabetes, type II Oncologic: Reports: Prostate - Tobacco Use Tobacco Use Status *Q: Never Tobacco User - Caffeine Use Caffeine Use: Reports: Coffee Other Caffeine Use: 2-3 cups/day Caffeine Use Comment: very little - Recreational Drug Use Recreational Drug Use: No ED ROS GENERAL - Review of Systems Review Of Systems: See Below Constitutional: Denies: Fever, Chills HEENT: Reports: No Symptoms Respiratory: Reports: Shortness of Breath Cardiovascular: Reports: Chest Pain, Dyspnea on Exertion GI/Abdominal: Reports: No Symptoms Skin: Reports: No Symptoms Neurological: Reports: No Symptoms ED EXAM, GENERAL - Physical Exam Exam: See Below Exam Limited By: No Limitations General Appearance: Alert, WD/WN, No Apparent Distress Respiratory/Chest: No Respiratory Distress, Lungs Clear, Normal Breath Sounds, No Accessory Muscle Use, Chest Non-Tender Cardiovascular: Regular Rate, Rhythm, No Murmur GI/Abdominal: Soft, Non-Tender Course - Vital Signs Last Recorded V/S: Last Vital Signs Temp 97.5 F 09/27/20 10:09 Pulse 77 09/27/20 12:15 Resp 20 09/27/20 12:15 BP 136/75 09/27/20 12:15 Pulse Ox 99 09/27/20 12:15 - Orders/Labs/Meds Orders: Active Orders 24 hr Category Date Time Status Magnesium Sulfate/Water [Magnesium Sulfate in Water Med 09/27/20 10:41 Active Premix] 2 gm in 50 ml IV ONETIME Medication Orders Magnesium Sulfate (Magnesium Sulfate In Water Premix) 2 gm in 50 mls @ 12.5 mls/hr IV ONETIME ONE Stop: 09/27/20 14:40 Last Admin: 09/27/20 10:58 Dose: 25 mls/hr Documented by: PREILOR Labs: Laboratory Tests 09/27/20 09/27/20 Range/Units 10:53 10:53 D-Dimer, Quantitative 3933.74 H (0.0-500.0) ng/mL Troponin I < 0.017 (0.000-0.056) ng/mL Meds: Medications Generic Name Dose Route Start Last Admin Trade Name Freq PRN Reason Stop Dose Admin Magnesium Sulfate 2 gm in 50 mls @ 12.5 mls/hr 09/27/20 10:41 09/27/20 10:58 Magnesium Sulfate In Water Premix IV 09/27/20 14:40 25 mls/hr ONETIME ONE Administration Discontinued Medications Generic Name Dose Route Start Last Admin Trade Name Carolann PRN Reason Stop Dose Admin Lactated Ringer's 1,000 mls @ 999 mls/hr 09/27/20 10:41 09/27/20 10:59 Ringers, Lactated IV 09/27/20 11:41 999 mls/hr BOLUS ONE Administration Sodium Chloride 100 mls @ 3.5 mls/sec 09/27/20 11:45 09/27/20 12:06 Normal Saline IV 09/27/20 11:46 4 mls/sec ASDIRECTED MARLA Administration Iopamidol 100 ml 09/27/20 11:45 09/27/20 12:06 Isovue-370 (76%) IV 09/27/20 11:46 100 ml . DIRECTED MARLA Administration Ketorolac Tromethamine 30 mg 09/27/20 10:55 09/27/20 11:11 Toradol IVPUSH 09/27/20 10:56 30 mg ONETIME ONE Administration Magnesium Oxide 400 mg 09/27/20 10:41 09/27/20 11:00 Magnesium Oxide PO 09/27/20 10:42 400 mg ONETIME ONE Administration Sodium Chloride 10 ml 09/27/20 11:44 09/27/20 12:06 Saline Flush FLUSH 09/27/20 11:45 10 ml ONETIME ONE Administration Departure - Departure Time of Disposition: 13:11 Disposition: Home, Self-Care 01 Condition: Poor Clinical Impression: Chest wall pain, Hypomagnesemia - Discharge Information Instructions: Hypomagnesemia, Nonspecific Chest Pain, Adult, [id number] Referrals: Yumiko Kirkpatrick PA-C [Primary Care Provider] - Forms: ED Department Discharge Additional Instructions: Keep your regular follow-up appointments with oncology call return to the emergency department worsening of symptoms Sepsis Event Note (ED) - Evaluation Sepsis Screening Result: No Definite Risk - Focused Exam Vital Signs: Vital Signs Temp Pulse Resp BP Pulse Ox 09/27/20 12:15 77 20 136/75 99 09/27/20 11:15 76 22 H 144/71 H 09/27/20 11:14 74 20 120/70 98 09/27/20 10:45 75 20 120/70 100 09/27/20 10:09 97.5 F 72 18 141/69 H 100 - My Orders Last 24 Hours: My Active Orders 09/27/20 10:41 Magnesium Sulfate/Water [Magnesium Sulfate in Water Premix] 2 gm in 50 ml IV ONETIME - Assessment/Plan Last 24 Hours: My Active Orders 09/27/20 10:41 Magnesium Sulfate/Water [Magnesium Sulfate in Water Premix] 2 gm in 50 ml IV ONETIME Plan: Assessment Acuity = acute Site and laterality = hypomagnesemia and chest pain complicated gentleman known history of prostate cancer with metastases Etiology = the low magnesium is probably related to medications, the chest pain is probably musculoskeletal in nature Manifestations = none Location of injury = Home Lab values = troponin is negative, D-dimer was elevated CT scan of the chest reveals no pulmonary embolism lymph nodes are slightly enlarged lesions in the spine remain the same chest x-ray reveals no acute cardiopulmonary issue Plan He had good improvement with Toradol provided in the emergency department his magnesium was replaced with both IV and p.o. keep his regular follow-up appointments with oncology This note was dictated using [employer] voice recognition software please call with any questions on syntax or grammar.
[2020-09-27] MEDS ORDERED: Ketorolac 30 MG/ML SDV IVPUSH ONE (10:55)
--- NOTE | 2020-09-27 11:19 | CR ---
CHEST: 2 view CLINICAL HISTORY:Chest pain COMPARISON:CT 08/24/2020 FINDINGS: [id number] catheter remains in place. The heart size, pulmonary vascularity and hilar structures are normal. No infiltrate effusion or pneumothorax is seen. IMPRESSION: No acute cardiopulmonary process.
[2020-09-27] MEDS ORDERED: Sodium Chloride 0.9% 10 ML Syringe FLUSH ONE (11:44)
[2020-09-27] MEDS ORDERED: Sodium Chloride 0.9% 100 ML IV SCH (11:45)
[2020-09-27] MEDS ORDERED: Iopamidol 755 Mg/ML 100 ML Bottle IV SCH (11:45)
[2020-09-27 12:25] VITALS: BP 136/75; PULSE 77
--- NOTE | 2020-09-27 12:38 | CT ---
Ang Chest CLINICAL HISTORY: SOB TECHNIQUE: Thin section axial contiguous tomographic sections were taken through the chest after bolus IV iodinated contrast administration. Coronal and sagittal images were reconstructed. Auto dosage reduction and iterative reconstruction techniques employed. FINDINGS: There is a 2 mm partially calcified nodule in the right apex. Posteriorly there is a 4 mm noncalcified nodule. These were felt to be present on prior study and are unchanged given slight technical differences. There is a 2 mm noncalcified nodule in the Superior segment of the right lower lobe. This is not definitively identified on prior study. This difference is likely technical. There is some minimal perihilar and lingular scarring. No pulmonary mass is identified. There is subsegmental atelectasis in the right middle lobe. There is a 1.4 x 1.8 cm lymph node in the low right paratracheal region. This is increased from 8 x 12 mm. There is a 1.4 x 2.3 cm lymph node just above the right pulmonary artery. This has increased slightly since prior study. There is a 1.1 x 1.8 cm lymph node in the right hilum also increased in size. No filling defects are identified in the pulmonary arteries. There is atheromatous plaque in the aorta without aneurysm or dissection Sclerotic bone lesions in the upper thoracic spine are unchanged. Previously described liver lesions are less well seen on current study due to phase of contrast enhancement IMPRESSION: No evidence of pulmonary embolus Right mediastinal and right hilar lymph nodes have increased in size since prior study Thoracic spine lesions are unchanged Previously described hepatic lesions are not well seen on current study due to vascular phase
== END 2020-09-27 13:33 | disposition home or self-care (01) ==
LOC: JP.ED 10:00
DX: R07.89 Other chest pain (principal); E83.42 Hypomagnesemia; E78.00 Pure hypercholesterolemia, unspecified; I10 Essential (primary) hypertension; M19.90 Unspecified osteoarthritis, unspecified site; E11.9 Type 2 diabetes mellitus without complications; E66.9 Obesity, unspecified; Z68.32 Body mass index [BMI] 32.0-32.9, adult; Z85.46 Personal history of malignant neoplasm of prostate; Z88.0 Allergy status to penicillin; Z79.82 Long term (current) use of aspirin; Z79.4 Long term (current) use of insulin; Z79.899 Other long term (current) drug therapy
CPT/HCPCS: 36415; 71046; 71275; 84484; 85379; 93010; 96365; 96366; 96375; 99284; 99285; A9270; J1885; J3475; J7120; Q9967